=== PATIENT | female | born 1960 | race Caucasian/White ===

== ENCOUNTER → 2022-05-11 | Outpatient (CLI) | payer OTHER, SELFPAY ==
[2022-05-11 09:39] LABS: Bacteria 0 SEEN /hpf (None Seen); Mucous, Urine 0 SEEN /hpf (<or=2+); Red Blood Cells-Urine 0 SEEN /hpf (0-5); Squamous Epithelial Cells - UA 0 SEEN /hpf (5-10)
[2022-05-11 09:40] LABS: Color, Urine Yellow (Yellow); Glucose, Dipstick Normal (Normal); Ketone-Dipstick Negative (Negative); Leukocyte Esterase-Dipstick 25 /ul (Negative); Nitrite-Dipstick Negative (Negative); Occult Blood-Urine Negative /ul (Negative); Protein-Dipstick Negative (Negative); Specific Gravity, Urine 1.005 (1.002-1.030); Urine Bilirubin Dipstick Negative (Negative); Urine Clarity Clear (Clear); Urine Urobilinogen Normal (Normal)
[2022-05-11 09:41] LABS: Hematocrit 43.6 % (37-47); Hemoglobin 14.5 g/dL (12.0-15.0); Mean Corp Hgb Conc 33.3 g/dL (32-36); Mean Corpuscular Hgb 32.1 pg (27.0-32.0); Mean Corpuscular Volume 96.5 fL (81-99); Platelet Count 228 K/mm3 (150-450); RBC Distribution Width CV 12.1 % (11.6-14.6); RBC Distribution Width SD 42.8 fl (35.1-43.9); Red Blood Count 4.52 M/mm3 (4.2-5.4); White Blood Count 3.8 K/mm3 (4.4-11.0)
[2022-05-11 09:49] LABS: White Blood Cells 0-5 SEEN /hpf (0-5)
[2022-05-11 10:05] LABS: ALB/GLOB Ratio 1.1 RATIO (0.9-2.4); AST(SGOT) 24 U/L (15-37); Alanine Aminotransfer ALT/SGPT 38 U/L (13-56); Albumin, Serum 4.1 g/dL (3.2-5.0); Alkaline Phosphatase 78 U/L (45-117); Anion Gap 7 (5-15); BUN 10 mg/dL (7-18); BUN/Creat Ratio 10.3 RATIO (10-20); Chloride 101 mmol/L (98-107); Cholesterol 160 mg/dL (200); Creatinine, Serum 0.97 mg/dL (0.55-1.02); EST Glomerular Filtration Rate 62 mL/min (>60); Est Glom Filt Rate - Afr Amer 75 mL/min (>60); Globulin 3.6 g/dL (2.2-4.2); Glucose 93 mg/dL (74-106); High Density Lipoprotein 52 mg/dL; Protein, Total 7.7 g/dL (6.4-8.2); Sodium Level 137 mmol/L (136-145); Thyroid Stim Hormone (TSH) 0.08 uIU/mL (0.358-3.74); Triglycerides 187 mg/dL; Very Low Density Lipoprotein 37 mg/dL (5-40)
[2022-05-11 10:32] LABS: HIV - WCH Non-Reactive (Nonreactive); Hepatitis C Antibody Non-Reactive (Nonreactive); Vitamin D,25 Hydroxy 72.8 ng/mL
== END | disposition home or self-care (01) ==
LOC: PAVLAB 09:14
PROVIDERS: PCP Nurse Practitioner Family; Referring Provider Nurse Practitioner Family; Visit Provider Nurse Practitioner Family
DX: N18.2 Chronic kidney disease, stage 2 (mild) (principal); E78.2 Mixed hyperlipidemia; E03.9 Hypothyroidism, unspecified; Z11.4 Encounter for screening for human immunodeficiency virus [HIV]; Z11.59 Encounter for screening for other viral diseases
CPT/HCPCS: 36415; 80053; 80061; 81001; 82306; 84443; 85027; 86703; 86803

== ENCOUNTER → 2022-07-19 | Outpatient (CLI) | payer OTHER, SELFPAY ==
[2022-07-19 09:39] LABS: Thyroid Stim Hormone (TSH) 0.94 uIU/mL (0.358-3.74)
== END | disposition home or self-care (01) ==
LOC: PAVLAB 08:56
PROVIDERS: PCP Nurse Practitioner Family; Referring Provider Nurse Practitioner Family; Visit Provider Nurse Practitioner Family
DX: E03.9 Hypothyroidism, unspecified (principal)
CPT/HCPCS: 36415; 84443

== ENCOUNTER → 2022-11-18 | Outpatient (CLI) | payer OTHER, SELFPAY ==
[2022-11-18 10:24] LABS: Bacteria 0 SEEN /hpf (None Seen); Mucous, Urine 0 SEEN /hpf (<or=2+); Red Blood Cells-Urine 0 SEEN /hpf (0-5)
[2022-11-18 10:27] LABS: Hematocrit 42.8 % (37-47); Hemoglobin 14.1 g/dL (12.0-15.0); Mean Corp Hgb Conc 32.9 g/dL (32-36); Mean Corpuscular Hgb 32.7 pg (27.0-32.0); Mean Corpuscular Volume 99.3 fL (81-99); Mean Platelet Vol. 9.3 fl (6.2-12.0); Platelet Count 225 K/mm3 (150-450); RBC Distribution Width CV 12.2 % (11.6-14.6); RBC Distribution Width SD 44.8 fl (35.1-43.9); Red Blood Count 4.31 M/mm3 (4.2-5.4); White Blood Count 4.2 K/mm3 (4.4-11.0)
[2022-11-18 10:29] LABS: Color, Urine Yellow (Yellow); Glucose, Dipstick Normal (Normal); Ketone-Dipstick Negative (Negative); Leukocyte Esterase-Dipstick 25 /ul (Negative); Nitrite-Dipstick Negative (Negative); Occult Blood-Urine Negative /ul (Negative); Protein-Dipstick Negative (Negative); Specific Gravity, Urine 1.005 (1.002-1.030); Urine Bilirubin Dipstick Negative (Negative); Urine Clarity Sl. Cloudy (Clear); Urine Urobilinogen Normal (Normal)
[2022-11-18 10:36] LABS: Squamous Epithelial Cells - UA 0-5 SEEN /hpf (5-10); White Blood Cells 0-5 SEEN /hpf (0-5)
[2022-11-18 10:49] LABS: ALB/GLOB Ratio 1.1 RATIO (0.9-2.4); AST(SGOT) 24 U/L (15-37); Alanine Aminotransfer ALT/SGPT 33 U/L (13-56); Albumin, Serum 3.9 g/dL (3.2-5.0); Alkaline Phosphatase 80 U/L (45-117); Anion Gap 6 (5-15); BUN 9 mg/dL (7-18); BUN/Creat Ratio 8.8 RATIO (10-20); Calcium,Total 9.1 mg/dL (8.5-10.1); Chloride 102 mmol/L (98-107); Creatinine, Serum 1.02 mg/dL (0.55-1.02); EST Glomerular Filtration Rate 58 mL/min (>60); Est Glom Filt Rate - Afr Amer 70 mL/min (>60); Globulin 3.5 g/dL (2.2-4.2); Glucose 97 mg/dL (74-106); Potassium 4.2 mmol/L (3.5-5.1); Protein, Total 7.4 g/dL (6.4-8.2); Sodium Level 136 mmol/L (136-145); Thyroid Stim Hormone (TSH) 0.59 uIU/mL (0.358-3.74)
== END | disposition home or self-care (01) ==
LOC: PAVLAB 09:48
PROVIDERS: PCP Nurse Practitioner Family; Referring Provider Nurse Practitioner Family; Visit Provider Nurse Practitioner Family
DX: E03.8 Other specified hypothyroidism (principal); N18.30 Chronic kidney disease, stage 3 unspecified; E06.3 Autoimmune thyroiditis; I12.9 Hypertensive chronic kidney disease with stage 1 through stage 4 chronic kidney disease, or unspecified chronic kidney disease
CPT/HCPCS: 36415; 80053; 81001; 84443; 85027

== ENCOUNTER → 2023-05-17 | Outpatient (CLI) | payer OTHER, SELFPAY ==
[2023-05-17 10:07] LABS: Hematocrit 42.5 % (37-47); Mean Corp Hgb Conc 32.9 g/dL (32-36); Mean Platelet Vol. 9.1 fl (6.2-12.0); Platelet Count 229 K/mm3 (150-450); RBC Distribution Width CV 12.3 % (11.6-14.6); RBC Distribution Width SD 44.3 fl (35.1-43.9); Red Blood Count 4.38 M/mm3 (4.2-5.4); White Blood Count 3.7 K/mm3 (4.4-11.0)
[2023-05-17 10:43] LABS: Vitamin D,25 Hydroxy 77.6 ng/mL
[2023-05-17 10:51] LABS: ALB/GLOB Ratio 1.1 RATIO (0.9-2.4); AST(SGOT) 30 U/L (15-37); Alanine Aminotransfer ALT/SGPT 44 U/L (13-56); Albumin, Serum 3.9 g/dL (3.2-5.0); Alkaline Phosphatase 87 U/L (45-117); Anion Gap 1 (5-15); BUN 9 mg/dL (7-18); BUN/Creat Ratio 8.9 RATIO (10-20); Calcium,Total 8.9 mg/dL (8.5-10.1); Chloride 105 mmol/L (98-107); Cholesterol 166 mg/dL (200); Creatinine, Serum 1.01 mg/dL (0.55-1.02); EST Glomerular Filtration Rate 59 mL/min (>60); Est Glom Filt Rate - Afr Amer 71 mL/min (>60); Globulin 3.6 g/dL (2.2-4.2); Glucose 99 mg/dL (74-106); High Density Lipoprotein 48 mg/dL; Protein, Total 7.5 g/dL (6.4-8.2); Sodium Level 135 mmol/L (136-145); Thyroid Stim Hormone (TSH) 0.85 uIU/mL (0.358-3.74); Triglycerides 173 mg/dL; Very Low Density Lipoprotein 35 mg/dL (5-40)
--- OUTSIDE RECORDS SUMMARY | 2023-05-17 11:21 | XMS RPT_ITS | CCD ---
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 Tamara Slater Attending Kaitlyn Durant, Dr. Tamara Slater Primary Care TAMARA Hager Primary Care Unavailable TAMARA DURANT Attending Unavailable TAMARA DURANT Referring Unavailable TAMARA DURANT Primary Care Unavailable TAMARA DURANT Referring Unavailable TAMARA DURANT Primary Care Unavailable TAMARA DURANT Attending Unavailable TAMARA DURANT Referring Unavailable TAMARA DURANT Primary Care Unavailable TAMARA DURANT Attending Unavailable TAMARA DURANT Referring Unavailable LIA MOSQUEDA Attending Unavailable TAMARA DURANT Referring Unavailable TAMARA DURANT Primary Care Unavailable SEBASTIAN BENSON Attending Unavailable LIA MOSQUEDA Referring Unavailable TAMARA DURANT Primary Care Unavailable TAMARA DURANT Primary Care Unavailable SAYDA ARBOLEDA Referring Unavailable LIA MOSQUEDA Attending Unavailable Medications Current Medications Medication Drug Class(es) Dates Sig (Normalized) Sig (Original) Ascorbic Acid (1 source) Vitamin C Ascorbic Acid (VITAMIN C PO) Take by mouth 0 Active B Complex Vitamins (VITAMIN B COMPLEX PO) (1 source) B Complex Vitamins (VITAMIN B COMPLEX PO) Take by mouth 0 Active linseed oil 1000 mg oral capsule (1 source) take 1 capsule by mouth once daily Flaxseed, Linseed, (FLAX SEED OIL) 1000 MG CAPS Take 1,000 mg by mouth daily 0 Active Multiple Vitamins-Minerals (DAILY MULTI VITAMIN/MINERALS PO) (1 source) Multiple Vitamins-Minerals (DAILY MULTI VITAMIN/MINERALS PO) Take by mouth 0 Active nystatin [id number] unt/ml topical cream (8 sources) Polyene Antifungal Start: 05-20-2022 End: 06-19-2022 nystatin (MYCOSTATIN) cream Indications: Yeast dermatitis Apply to affected area twice daily. 30 g 2 05/20/2022 06/19/2022 Active Completed/Discontinued Medications Medication Drug Class(es) Dates Sig (Normalized) Sig (Original) cholecalciferol 0.125 mg oral tablet (19 sources) Vitamin D take 1 tablet by mouth once daily cholecalciferol (VITAMIN D3) 5,000 unit tab Take 5,000 Units by mouth once daily. 0 Active Problems Active Problems Problem Classification Problem Date Documented Date Episodic/Chronic Chronic kidney disease (20 sources) Chronic kidney disease stage 2; Translations: [Chronic kidney disease, stage 2 (mild)] Onset: 05-30-2019 Chronic Chronic kidney disease (1 source) Chronic kidney disease; Translations: [Stage 3 chronic kidney disease, unspecified whether stage 3a or 3b CKD (HCC)] Onset: 04-08-2022 Disorders of lipid metabolism (20 sources) Hyperlipidemia; Translations: [Mixed hyperlipidemia] Onset: 11-30-2015 11-30-2015 Chronic Essential hypertension (16 sources) Hypertensive disorder; Translations: [Essential (primary) hypertension] Onset: 11-30-2015 11-30-2015 Chronic Heart valve disorders (20 sources) Mitral valve prolapse; Translations: [Nonrheumatic mitral (valve) prolapse] Onset: 04-19-2022 Chronic Immunizations and screening for infectious disease (20 sources) Patient encounter status; Translations: [Encounter for screening for human immunodeficiency virus [HIV]] Onset: 07-15-2020 Episodic Other endocrine disorders (19 sources) Hyperparathyroidism; Translations: [Hyperparathyroidism, unspecified] Onset: 09-23-2021 04-08-2022 Chronic Other screening for suspected conditions (not mental disorders or infectious disease) (8 sources) Cancer cervix screening status; Translations: [Encounter for screening for malignant neoplasm of cervix] Onset: 05-20-2022 Episodic Thyroid disorders (20 sources) Hypothyroidism; Translations: [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] Onset: 11-30-2015 11-30-2015 Chronic Unclassified (1 source) 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 Onset: 06-01-2022 Past or Other Problems Problem Classification Problem Date Documented Da te Episodic/Chronic Cardiac dysrhythmias (4 sources) Tachycardia; Translations: [Tachycardia, unspecified] Onset: 05-26-2022 Episodic Mycoses (2 sources) Candidiasis of skin; Translations: [Candidiasis of skin and nail] Onset: 05-20-2022 Episodic Other and unspecified benign neoplasm (18 sources) History of polyp of colon; Translations: [Personal history of colonic polyps] Onset: 04-19-2022 04-19-2022 Episodic Results Test Name Value Interpretation Reference Range Facil ity Vital Signs Date Time Vital Sign Value Performing Clinician Corazon jack 01-17-2023 08:56-0400 Body height 170.2 cm Lia AWAN-Stephie Work Phone: [facility] 01-17-2023 08:56-0400 Body weight 84.37 kg Lia AWAN-C Work Phone: [facility] 01-17-2023 08:56-0400 Diastolic blood pressure 78 mm[Hg] Lia AWAN-C Work Phone: [facility] 01-17-2023 08:56-0400 Heart rate 77 /min Lia AWAN-C Work Phone: [facility] 01-17-2023 08:56-0400 Systolic blood pressure 129 mm[Hg] Lia Patriciar PA-C Work Phone: [facility] 11-18-2022 08:35-0400 Body height 170.2 cm Tamara Durant LABEL DESIGNER.MICROECONOMICS PROFESSOR Work Phone: [facility] 11-18-2022 08:35-0400 Body temperature 97 [degF] Tamara Trill LABEL DESIGNER.MICROECONOMICS PROFESSOR Work Phone: [facility] 11-18-2022 08:35-0400 Body weight 85.28 kg Tamara Trill LABEL DESIGNER.MICROECONOMICS PROFESSOR Work Phone: [facility] 11-18-2022 08:35-0400 Diastolic blood pressure 74 mm[Hg] Tamara Trill LABEL DESIGNER.MICROECONOMICS PROFESSOR Work Phone: [facility] 11-18-2022 08:35-0400 Heart rate 70 /min Tamara Trill LABEL DESIGNER.MICROECONOMICS PROFESSOR Work Phone: [facility] 11-18-2022 08:35-0400 SaO2% (BldA) [Mass fraction] 98 % Tamara Trill LABEL DESIGNER.MICROECONOMICS PROFESSOR Work Phone: [facility] 11-18-2022 08:35-0400 Systolic blood pressure 110 mm[Hg] Tamara Trill LABEL DESIGNER.MICROECONOMICS PROFESSOR Work Phone: [facility] 06-01-2022 09:11-0500 Body height 170.2 cm Tamara Trill LABEL DESIGNER.MICROECONOMICS PROFESSOR Work Phone: [facility] 06-01-2022 09:11-0500 Body temperature 98.2 [degF] Tamara Trill LABEL DESIGNER.MICROECONOMICS PROFESSOR Work Phone: [facility] 06-01-2022 09:11-0500 Body weight 84.37 kg Tamara Trill LABEL DESIGNER.MICROECONOMICS PROFESSOR Work Phone: [facility] 06-01-2022 09:11-0500 Diastolic blood pressure 70 mm[Hg] Tamara Trill LABEL DESIGNER.MICROECONOMICS PROFESSOR Work Phone: [facility] 06-01-2022 09:11-0500 Heart rate 84 /min Tamara Trill LABEL DESIGNER.MICROECONOMICS PROFESSOR Work Phone: [facility] 06-01-2022 09:11-0500 SaO2% (BldA) [Mass fraction] 98 % Tamara Trill LABEL DESIGNER.MICROECONOMICS PROFESSOR Work Phone: [facility] 06-01-2022 09:11-0500 Systolic blood pressure 110 mm[Hg] Tamara Trill LABEL DESIGNER.MICROECONOMICS PROFESSOR Work Phone: [facility] 05-20-2022 09:07-0500 Body height 170.2 cm Tamara Trill LABEL DESIGNER.MICROECONOMICS PROFESSOR Work Phone: [facility] 05-20-2022 09:07-0500 Body temperature 97.7 [degF] Tamara Trill LABEL DESIGNER.MICROECONOMICS PROFESSOR Work Phone: [facility] 05-20-2022 09:07-0500 Body weight 82.56 kg Tamara Trill LABEL DESIGNER.MICROECONOMICS PROFESSOR Work Phone: [facility] 05-20-2022 09:07-0500 Diastolic blood pressure 68 mm[Hg] Tamara Trill LABEL DESIGNER.MICROECONOMICS PROFESSOR Work Phone: [facility] 05-20-2022 09:07-0500 Heart rate 80 /min Tamara Trill LABEL DESIGNER.MICROECONOMICS PROFESSOR Work Phone: [facility] 05-20-2022 09:07-0500 SaO2% (BldA) [Mass fraction] 98 % Tamara Trill LABEL DESIGNER.MICROECONOMICS PROFESSOR Work Phone: [facility] 05-20-2022 09:07-0500 Systolic blood pressure 110 mm[Hg] Tamara Trill LABEL DESIGNER.MICROECONOMICS PROFESSOR Work Phone: [facility] 04-08-2022 08:18-0500 Body height 170.2 cm Tamara Trill LABEL DESIGNER.MICROECONOMICS PROFESSOR Work Phone: [facility] 04-08-2022 08:18-0500 Body temperature 98.01 [degF] Tamara Trill LABEL DESIGNER.MICROECONOMICS PROFESSOR Work Phone: [facility] 04-08-2022 08:18-0500 Body weight 84.82 kg Tamara Trill LABEL DESIGNER.MICROECONOMICS PROFESSOR Work Phone: [facility] 04-08-2022 08:18-0500 Diastolic blood pressure 64 mm[Hg] Tamara Trill LABEL DESIGNER.MICROECONOMICS PROFESSOR Work Phone: [facility] 04-08-2022 08:18-0500 Heart rate 85 /min Tamara Trill LABEL DESIGNER.MICROECONOMICS PROFESSOR Work Phone: [facility] 04-08-2022 08:18-0500 SaO2% (BldA) [Mass fraction] 100 % Tamara Trill LABEL DESIGNER.MICROECONOMICS PROFESSOR Work Phone: [facility] 04-08-2022 08:18-0500 Systolic blood pressure 116 mm[Hg] Tamara Durant APRN.MICROECONOMICS PROFESSOR Work Phone: [facility] Encounters Encounter Date Encounter Type Care Provider Facility Start: 05-09-2023 End: 05-09-2023 ambulatory LIA MOSQUEDA [facility] Start: 04-24-2023 [facility]ced[facility] Start: 04-24-[address] [facility] Start: 01-17-2023 Telephone encounter Lia wilson PA-C Work Phone: [facility] Procedures Date Procedure Procedure Detail Performing Clinician Start: 07-19-2022 TSH BLD [facility] Provid er Start: 06-01-2022 Mammography Mammograph y Coordinator Start: 05-20-2022 Iadna human papillom avirus high-risk types Tamara Durant APRN.MICROECONOMICS PROFESSOR Work Phone: Start: 05-20-2022 Unlisted surgical pa thology procedure Tamara Durant APRN.MICROECONOMICS PROFESSOR Work Phone: Start: 05-11-2022 CBC panel - Blood by Automated count [facility] Provider Start: 05-11-2022 Comprehensive metabo lic 2000 panel - Serum or Plasma [facility] Provider Start: 05-11-2022 Hepatitis c antibody [facility] f Provider Start: 05-11-2022 HIV [facility] Provid er Start: 05-11-2022 Lipid panel [facility] Provid er Start: 05-11-2022 UA DIP B/O [facility] Provid er Start: 05-11-2022 VITAMIN D 1-25 DIHYDROXY [facility] Provider Start: 05-11-2022 Lipid 1996 panel - S juancho or Plasma Lia Mosqueda PA-C Work Phone: Plan of Treatment Date Care Activity Detail Author Start: 10-07-2027 Colon cancer screen colonoscopy Colon cancer screen colonoscopy [place], [place] Start: 06-01-2027 HPV TESTING HPV TESTING [facility] Start: 06-01-2027 PAP TESTING PAP TESTING [facility] Start: 05-20-2027 HPV TESTING HPV TESTING [facility] Start: 05-20-2027 PAP TESTING PAP TESTING [facility] Start: 05-11-2027 Lipid 1996 panel - S juancho or Plasma Lipid Screening [facility] Start: 05-11-2027 LIPID SCREEN LIPID SCREEN [facility] Start: 05-11-2025 DIABET[facility] Start: 05-11-2025 Diabetes Screening Diabetes Screenin g [facility] Start: 11-19-2023 ANNUAL PCP TEAM OPHTHALMIC ASST WEI DISEASE VISIT ANNUAL PCP TEAM CHRONIC DISEASE VISIT [facility] Start: 06-01-2023 ANNUAL PCP TEAM OPHTHALMIC ASST WEI DISEASE VISIT ANNUAL PCP TEAM CHRONIC DISEASE VISIT [facility] Start: 06-01-2023 BP CONTROLLED (<130/80) BP CONTROLLE D (<130/80) [facility] Start: 06-01-2023 Mammography [facility] Start: 05-20-2023 ANNUAL PCP TEAM OPHTHALMIC ASST WEI DISEASE VISIT ANNUAL PCP TEAM CHRONIC DISEASE VISIT [facility] Start: 05-20-2023 BP CONTROLLED (<130/80) BP CONTROLLE D (<130/80) [facility] Start: 05-20-2023 COLORECTAL CANCER SCREENING COLORECTAL CANCER SCREENING [facility] Immunizations Immunization Date Immunization Notes Care Provider Fa claudia 05-07-2019 zoster vaccine recombinant Tamara Trill LABEL DESIGNER.MICROECONOMICS PROFESSOR Work Phone: [facility] Work Phone: 02-25-2019 zoster vaccine recombinant Tamara Trill LABEL DESIGNER.MICROECONOMICS PROFESSOR Work Phone: [facility] Work Phone: Payers Date Payer Category Payer Unknown [id number] 2021 Unknown [id number] 2016 Unknown [employer] ACCESS [employer] xxxxxxxxxxxx 2016-Present [address] [place] [address] xxxxxxxxxxxx [id number] 1960 Unknown [id number] Social History Date Type Detail Facility Start: 08-16-2017 End: 04-08-2022 Tobacco smoking status NHIS Never smoker [facility] Start: 08-16-2017 End: 11-18-2022 Alcohol intake No [facility] Start: 1960 Sex Assigned At Not on file [facility] [place] Start: 04-08-2022 Tobacco use and exposure Smoke less tobacco non-user [facility] Start: 04-19-2022 End: 01-17-2023 Alcohol intake Lifetime non-drinker (finding) [facility] Start: 11-18-2022 End: 11-21-2022 History of Social function [facility] Adult Depression Screening Assessment 0 [facility] Clinical Notes 11-30-2015 to 05-09-2023 Telephone Encounter - Lisette Mcdonald - 01/17/2023 11:26 AM EDTAddendum Note - Lisette Mcdonald - 01/17/2023 11:25 AM EDTAddendum Note - Lisette Mcdonald - 01/17/2023 10:54 AM EDT Note Date & Type Note Facility 05-09-2023 Note HNO ID: [id number] Author: LIA MOSQUEDA PA-C Service: ? Author Type: Physician [employer] Type: Progress Notes Filed: 05/09/2023 09:21 Note Text: GASTROENTEROLOGY PROGRESS NOTE OUTPATIENT FOLLOW UP HPI: I saw Eliana Nolan today for a follow up for a colonoscopy. The procedure went well. 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 removed atypical cell COLONOSCOPY SCREENING 04/24/2023 IRIDOTOMY/IRRIDECTOMY LASER SURG PER SESSION Bilateral 2018 Dr. White LIGLATANYA FALLOPIAN TUBE tubual ligation in 1996 Social History Tobacco Use Smoking status: Never Passive exposure: Past Smokeless tobacco: Never Substance Use Topics Alcohol use: Never Drug use: Never FAMILY HISTORY Problem Relation Age of Onset Diabetes Mother Heart disease Mother other (Twisted colon) Mother other (CHF) Mother other (TIA) Mother other (Neck Surgery) Mother other (CHF) Father other (Lead poisoning) Father Arthritis Sister Heart Sister Diabetes Brother Arthritis Brother Breast Cancer Paternal Aunt Current Outpatient Medications Medication Sig fluticasone (FLONASE) 50 mcg/actuation nasal spray instill 1 (ONE) spray IN EACH NOSTRIL TWICE DAILY for 1 (ONE) month. if no improvement, may discontinue DIRECTED (Patient not taking: Reported on 04/24/2023) lisinopril 2.5 mg tablet TAKE 1 TABLET BY MOUTH 1 TIME EACH DAY. pravastatin (PRAVACHOL) 40 mg tablet TAKE 1 TABLET BY MOUTH 1 TIME EACH DAY. levothyroxine (SYNTHROID) 125 mcg tablet TAKE 1 TABLET BY MOUTH 1 TIME EACH DAY. COQ10, UBIQUINOL, ORAL Take by mouth once daily. Multivitamin capsule Take 1 capsule by mouth once daily. Complete multivitamin woman vitamin B complex/folic acid (B COMPLEX 100 ORAL) Take by mouth. complex cholecalciferol (VITAMIN D3) 5,000 unit tab Take 5,000 Units by mouth once daily. Fluocinolone Acetonide Oil 0.01 % drop APPLY 1 3 DROPS BOTH EARS TWICE A DAY NEEDED Current Facility-Administered Medications Medication Dose Route Frequency perflutren lipid microspheres 1.3 mL in NaCl (PF) 0.9% 10 mL injection (DEFINITY) INTRAVENOUS DIRECTED PRN sodium chloride 0.9 % (flush) 10 mL (BD POSIFLUSH) 10 mL INTRAVENOUS DIRECTED PRN ALLERGIES No Known Allergies PHYSICAL EXAMINATION: BP 135/81 (BP Site: Left Arm, BP Position: Sitting, BP Cuff Size: Regular Adult) Pulse 84 Ht 170.2 cm (5' 7 ) Wt 86.2 kg (190 lb) BMI 29.76 kg/m? GENERAL APPEARANCE: Well appearing, alert, in no acute distress, well-hydrated, well nourished.. SKIN: Skin color, texture, turgor normal, no suspicious rashes or lesions. EYES: Anicteric sclera. Extraocular movements are intact. . NECK: Supple, no adenopathy; thyroid symmetric, normal size. EXTREMITIES: No deformities, edema, skin discoloration, clubbing or cyanosis. NEUROLOGIC: Gait normal. Sensation and strength grossly intact.. LABS: HCT Date Value 05/11/2022 43.6 05/11/2022 43.6 % WBC (no units) Date Value 05/11/2022 3.8 05/11/2022 0-5 05/11/2022 3.8 Lab Results Component Value Date TBILI 0.70 05/11/2022 ALB 4.1 05/11/2022 ALKPHOS 78 05/11/2022 AST 24 05/11/2022 ALT 38 05/11/2022 TPROT 7.7 05/11/2022 Colonoscopy 04/24/2023 Pre-Op/Pre-Procedure Diagnosis: Surveillance colonoscopy Post-Op/Post-Procedure Diagnosis: Sigmoid diverticulosis Normal examined colon and retroflexion Recommendations: DC home Resume previous diet Continue home medication Repeat colonoscopy in 7-10 years Plan ASSESSMENT AND PLAN: Impression: Eliana is a 62 y/o female who presents for a screening colonoscopy follow up. No polyps were removed. Based on her hx of polyps in the past I recommended repeating a c-scope in 7-10 yrs. Told pt to return to office sooner if she has any GI concerns. She understood and agreed. Pt had no further questions ASSESSMENT/PLAN: 1. Screening for colorectal cancer - ICD9: V76.51, V76.41, ICD10: Z12.11, Z12.12 -repeat c-scope in 7-10 yrs Lia Mosqueda PA-C I spent a total of 10 minutes on the date of the service which included preparing to see the patient, [id number] patient care, completing clinical documentation, counseling and educating the patient/family/caregiver, and communicating results to the patient/family/caregiver. [facility] 04-24-2023 Note HNO ID: [id number] Author: DEB ROQUE RN Service: Nursing Author Type: Registered Nurse Type: Nursing Progress Note Filed: 04/24/2023 15:47 Note Text: Pt dressed self. Pt D/c from PACU in stable condition via independent ambulation. [facility] 04-24-2023 Note HNO ID: [id number] Author: DEB ROQUE RN Service: Nursing Author Type: Registered Nurse Type: Nursing Progress Note Filed: 04/24/2023 15:09 Note Text: Dr. Benson in to see pt [facility] 04-24-2023 Note HNO ID: [id number] Author: FRANCY GOODRICH APRN.CNP Service: Anesthesiology Author Type: Nurse Practitioner Type: Progress Notes Filed: 04/24/2023 14:07 Note Text: Summary: HANDP PAT HISTORY AND PHYSICAL EXAMINATION SERVICE DATE: 04/24/2023 SERVICE TIME: 1347 PRIMARY CARE PHYSICIAN: Tamara Durant APRN.[facility] REASON FOR VISIT: The reason for this visit is To perform a comprehensive review of the patients past medical history, assess their current health status and obtain any additional testing required based on anesthesia guidelines. To assess and identify potential anesthesia problems, particularly those that may suggest potential complications or contraindications to the planned procedure. 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 Plan for colonoscopy. Denies bloody and tarry stools. Denies diarrhea and constipation. Denies family history of colon cancer. Denies abd pain. Weight is stable. Last colonoscopy was in 2018- 1 rectal polyp removed. Procedure discussed with Dr. Benson- patient agreed. -Known hemorrhoids Climb a flight of stairs or walk up a hill (5.50 METs) Patient denies any CP/SOB with above activity. 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 removed atypical cell IRIDOTOMY/IRRIDECTOMY LASER SURG PER SESSION Bilateral 2018 Dr. White LIGLATANYA FALLOPIAN TUBE tubual ligation in 1996 FAMILY HISTORY Problem Relation Age of Onset Diabetes Mother Heart disease Mother other (Twisted colon) Mother other (CHF) Mother other (TIA) Mother other (Neck Surgery) Mother other (CHF) Father other (Lead poisoning) Father Arthritis Sister Heart Sister Diabetes Brother Arthritis Brother Breast Cancer Paternal Aunt SOCIAL HISTORY: Social History Tobacco Use Smoking status: Never Smokeless tobacco: Never Substance Use Topics Alcohol use: Never Drug use: Never Prior to Admission medications as of 04/24/23 1347 Medication Sig Last Dose Taking lisinopril 2.5 mg tablet TAKE 1 TABLET BY MOUTH 1 TIME EACH DAY. 04/23/2023 at PM Yes pravastatin (PRAVACHOL) 40 mg tablet TAKE 1 TABLET BY MOUTH 1 TIME EACH DAY. Yes levothyroxine (SYNTHROID) 125 mcg tablet TAKE 1 TABLET BY MOUTH 1 TIME EACH DAY. Yes COQ10, UBIQUINOL, ORAL Take by mouth once daily. Yes Multivitamin capsule Take 1 capsule by mouth once daily. Complete multivitamin woman Yes vitamin B complex/folic acid (B COMPLEX 100 ORAL) Take by mouth. complex Yes cholecalciferol (VITAMIN D3) 5,000 unit tab Take 5,000 Units by mouth once daily. Yes Fluocinolone Acetonide Oil 0.01 % drop APPLY 1 3 DROPS BOTH EARS TWICE A DAY NEEDED Yes fluticasone (FLONASE) 50 mcg/actuation nasal spray instill 1 (ONE) spray IN EACH NOSTRIL TWICE DAILY for 1 (ONE) month. if no improvement, may discontinue DIRECTED Patient not taking: Reported on 04/24/2023 Not Taking No medication comments found. ALLERGIES No Known Allergies REVIEW OF SYSTEMS: PAIN ASSESSMENT: Pain Pain Level: 0 Pain Assessment: Assessment Tool: Verbal (Numeric Rating or Visual Analog Scale) General: (-) fever, chills, and unexpected weight change. Neuro: (-) dizziness and headaches. Respiratory: (-) SOB. Cardiovascular: (-) CP and palpitations. +MVP. HTN. +Hyperlipidemia. GI: See HPI. : (-) dysuria. +CKD Endocrine: (-) diabetes, +Hypothyroid - GREGORY elevated- per patient r/t thyroid Hematology: (-) history of bleeding or clotting disorder. Elevated GREGORY. Psych: (-) anxiety/depression. Musculoskeletal: (-) joint pain and swelling. Skin: (-) open sores and rashes. Objective PHYSICAL EXAM: VITALS: BP 129/66 Pulse 89 Temp (Src) 98.1 (Temporal) Resp 18 Ht 5' 7 (1.70m) Wt 186 lb (84.4kg) SpO2 100% BMI 29.12 kg/(m2). O2 Therapy: Room Air General: NAD. Cooperative. Skin: Skin is warm, no rashes, and no open sores. HEENT: Normocephalic. Cardiovascular: Normal S1 AND S2. RRR Lungs: CTA Bilaterally. No respiratory distress. Abdomen: Soft. Pos BS x4quad Extremities: No edema. Neurological: Alert and oriented to person, place, and time. Pulses: radial pulses +2 Diagnostic tests reviewed fo (more content not included)... [facility] 01-17-2023 Miscellaneous Notes Surgery Checklist Type: Colonoscopy Admission Type: outpatient Anesthesia: MAC Date: 04/24/23 Arrival Time: 8:30 AM Surgery Time: 9:30 AM Location: [place] Prep updated 1-Day Dulcolax/Miralax prep given to patient at appointment Lisette Mcdonald January 17, 2023 11:27 AM documented in this encounter [facility] 01-17-2023 Miscellaneous Notes Addended by: LISETTE MCDONALD on: 01/17/2023 11:25 AM Modules accepted: Orders Addended by: LISETTE MCDONALD on: 01/17/2023 10:54 AM Modules accepted: Orders documented in this encounter [facility] 01-17-2023 Note HNO ID: [id number] Author: Lia Mosqueda PA-C Service: ? Author Type: Physician [employer] Type: Progress Notes Filed: 01/17/2023 9:22 AM Note Text: GASTROENTEROLOGY OUTPATIENT NEW OFFICE VISIT CC: Patient presents with: New Patient: Colon screening HPI: Eliana Nolan is a 62 year old female who presents for New Patient (Colon screening/). She had a colonoscopy in 2018. It was done at another facility. 1 benign rectal polyp was removed. NSAID use: none. Unexplained weight loss: weight stable Take Blood thinners: none Bowel Habits: BM- every other day. If eats fiber then she has soft formed stool. If she has a low fiber diet she has hard stool Fam Hx: negative for colon CA Current Outpatient Medications Medication Sig lisinopril 2.5 mg tablet TAKE 1 TABLET BY MOUTH 1 TIME EACH DAY. pravastatin (PRAVACHOL) 40 mg tablet TAKE 1 TABLET BY MOUTH 1 TIME EACH DAY. levothyroxine (SYNTHROID) 125 mcg tablet TAKE 1 TABLET BY MOUTH 1 TIME EACH DAY. COQ10, UBIQUINOL, ORAL Take by mouth once daily. Multivitamin capsule Take 1 capsule by mouth once daily. Complete multivitamin woman vitamin B complex/folic acid (B COMPLEX 100 ORAL) Take by mouth. complex cholecalciferol (VITAMIN D3) 5,000 unit tab Take 5,000 Units by mouth once daily. Fluocinolone Acetonide Oil 0.01 % drop APPLY 1 3 DROPS BOTH EARS TWICE A DAY NEEDED fluticasone (FLONASE) 50 mcg/actuation nasal spray instill 1 (ONE) spray IN EACH NOSTRIL TWICE DAILY for 1 (ONE) month. 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 removed atypical cell IRIDOTOMY/IRRIDECTOMY LASER SURG PER SESSION Bilateral 2018 Dr. White LIGATE FALLOPIAN TUBE tubual ligation in 1996 FAMILY HISTORY Problem Relation Age of Onset Diabetes Mother Heart disease Mother other (Twisted colon) Mother other (CHF) Mother other (TIA) Mother other (Neck Surgery) Mother other (CHF) Father other (Lead poisoning) Father Arthritis Sister Heart Sister Diabetes Brother Arthritis Brother Breast Cancer Paternal Aunt Social History Tobacco Use Smoking status: Never Smokeless tobacco: Never Substance Use Topics Alcohol use: Never Drug use: Never ALLERGIES No Known Allergies GI SPECIFIC ROS: Difficulty swallowing / foods sticking in throat: No Heartburn: No Hoarseness: No Chronic cough: No Regurgitation: No Chest pain: No Filling up quickly at meals: No Loss of appetite: No Nausea: No Vomiting: No Abdominal pain: No Recent change in bowel movements: No Bloody or black, bowel movements: No Constipation: Yes w/ low fiber diet Diarrhea: No Loss of control of bowel movements: No Night sweats, fever, chills: No Vomiting blood: No Recent change in weight: No PHYSICAL EXAMINATION: BP 129/78 Pulse 77 Ht 170.2 cm (5' 7 ) Wt 84.4 kg (186 lb) BMI 29.13 kg/m? GENERAL APPEARANCE: Well appearing, alert, in no acute distress, well-hydrated, well nourished.. SKIN: Skin color, texture, turgor normal, no suspicious rashes or lesions. EYES: Anicteric sclera. Extraocular movements are intact. . NECK: Supple, no adenopathy; thyroid symmetric, normal size. LUNGS: Lungs clear to auscultation. No wheezing, rhonchi, rales. HEART: RRR without murmur, gallop, or rubs. No ectopy. EXTREMITIES: No deformities, edema, skin discoloration, clubbing or cyanosis. NEUROLOGIC: Gait normal. Sensation and strength grossly intact.. ASSESSMENT AND PLAN: Impression: This is a 62 y/o female who presents to the office today for a consult for a colonoscopy. Patient has no GI complaints. Patient's last colonoscopy was 5 yrs ago. It was normal. This patient is not on blood thinners. We discussed the procedure, instructions, and patient agrees to proceed. The patient verbalized understanding and agreed with the plan. They stated that they had no further questions. F/u 2 weeks after c-scope ASSESSMENT/PLAN: 1. Screening for colorectal cancer - ICD9: V76.51, V76.41, ICD10: Z12.11, Z12.12 - COLONOSCOPY SCREENING Lia Mosqueda PA-C I spent a total of 15 minutes on the date of the service which included [id number] patient care, completing clinical documentation, performing a medically appropriate examination, counseling and educating the patient/family/caregiver, and ordering medications, tests, or pro (more content not included)... [facility] 01-17-2023 History of Present illness Narrative GASTROENTEROLOGY OUTPATIENT NEW OFFICE VISIT CC: Patient presents with: New Patient: Colon screening HPI: Eliana Nolan is a 62 year old female who presents for New Patient (Colon screening/). She had a colonoscopy in 2018. It was done at another facility. 1 benign rectal polyp was removed. NSAID use: none. Unexplained weight loss: weight stable Take Blood thinners: none Bowel Habits: BM- every other day. If eats fiber then she has soft formed stool. If she has a low fiber diet she has hard stool Fam Hx: negative for colon CA Current Outpatient Medications Medication Sig lisinopril 2.5 mg tablet TAKE 1 TABLET BY MOUTH 1 TIME EACH DAY. pravastatin (PRAVACHOL) 40 mg tablet TAKE 1 TABLET BY MOUTH 1 TIME EACH DAY. levothyroxine (SYNTHROID) 125 mcg tablet TAKE 1 TABLET BY MOUTH 1 TIME EACH DAY. COQ10, UBIQUINOL, ORAL Take by mouth once daily. Multivitamin capsule Take 1 capsule by mouth once daily. Complete multivitamin woman vitamin B complex/folic acid (B COMPLEX 100 ORAL) Take by mouth. complex cholecalciferol (VITAMIN D3) 5,000 unit tab Take 5,000 Units by mouth once daily. Fluocinolone Acetonide Oil 0.01 % drop APPLY 1 3 DROPS BOTH EARS TWICE A DAY NEEDED fluticasone (FLONASE) 50 mcg/actuation nasal spray instill 1 (ONE) spray IN EACH NOSTRIL TWICE DAILY for 1 (ONE) month. 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 removed atypical cell IRIDOTOMY/IRRIDECTOMY LASER SURG PER SESSION Bilateral 2018 Dr. White LIGLATANYA FALLOPIAN TUBE tubual ligation in 1996 FAMILY HISTORY Problem Relation Age of Onset Diabetes Mother Heart disease Mother other (Twisted colon) Mother other (CHF) Mother other (TIA) Mother other (Neck Surgery) Mother other (CHF) Father other (Lead poisoning) Father Arthritis Sister Heart Sister Diabetes Brother Arthritis Brother Breast Cancer Paternal Aunt Social History Tobacco Use Smoking status: Never Smokeless tobacco: Never Substance Use Topics Alcohol use: Never Drug use: Never ALLERGIES No Known Allergies GI SPECIFIC ROS: Difficulty swallowing / foods sticking in throat: No Heartburn: No Hoarseness: No Chronic cough: No Regurgitation: No Chest pain: No Filling up quickly at meals: No Loss of appetite: No Nausea: No Vomiting: No Abdominal pain: No Recent change in bowel movements: No Bloody or black, bowel movements: No Constipation: Yes w/ low fiber diet Diarrhea: No Loss of control of bowel movements: No Night sweats, fever, chills: No Vomiting blood: No Recent change in weight: No PHYSICAL EXAMINATION: BP 129/78 Pulse 77 Ht 170.2 cm (5' 7 ) Wt 84.4 kg (186 lb) BMI 29.13 kg/m GENERAL APPEARANCE: Well appearing, alert, in no acute distress, well-hydrated, well nourished.. SKIN: Skin color, texture, turgor normal, no suspicious rashes or lesions. EYES: Anicteric sclera. Extraocular movements are intact. . NECK: Supple, no adenopathy; thyroid symmetric, normal size. LUNGS: Lungs clear to auscultation. No wheezing, rhonchi, rales. HEART: RRR without murmur, gallop, or rubs. No ectopy. EXTREMITIES: No deformities, edema, skin discoloration, clubbing or cyanosis. NEUROLOGIC: Gait normal. Sensation and strength grossly intact.. ASSESSMENT AND PLAN: Impression: This is a 62 y/o female who presents to the office today for a consult for a colonoscopy. Patient has no GI complaints. Patient's last colonoscopy was 5 yrs ago. It was normal. This patient is not on blood thinners. We discussed the procedure, instructions, and patient agrees to proceed. The patient verbalized understanding and agreed with the plan. They stated that they had no further questions. F/u 2 weeks after c-scope ASSESSMENT/PLAN: 1. Screening for colorectal cancer - ICD9: V76.51, V76.41, ICD10: Z12.11, Z12.12 - COLONOSCOPY SCREENING Lia Mosqueda PA-C I spent a total of 15 minutes on the date of the service which included [id number] patient care, completing clinical documentation, performing a medically appropriate examination, counseling and educating the patient/family/caregiver, and ordering medications, tests, or procedures. documented in this encounter [facility] 11-22-2022 Miscellaneous Notes Patient notified and voiced understanding . Lisa Juan MA CBC shows stable low WBC BUN 9/Creat 1.02 - normal GFR 58, slightly decreased - stable chronic kidney disease stage 2 UA - negative for protein, positive leukocyte esterase which is okay because all other values are normal Liver function normal TSH is 0.59 - normal Tamara Durant APRN.CNP Received fax from [facility] with patients blood work and urine results. Placed in red folder to review. Lisa Juan MA documented in this encounter [facility] 11-18-2022 Note HNO ID: [id number] Author: Tamara Durant APRN.CNP Service: ? Author Type: Nurse Practitioner Type: Progress Notes Filed: 11/21/2022 11:15 PM Note Text: This note was created using [email or web address]. Subjective Eliana Nolan is a 62 year old female here today for follow up thyroid. I reviewed past medical, surgical, social, and family histories today and updated chart. Allergies, chronic medications, and supplements were also reviewed. Feeling well today. Denies chest pains, palpitations, headache, dizziness, leg swelling, and vision changes. She has been clearing her throat a lot. Started about 2 months. No drainage. No pain. No changes in her voice A couple of days felt like she was was losing her voice No itching in the throat Ears itch due to dry skin in the ear canals, uses ear drop Has been on lisinopril for about 2 years now - was started for proteinuria Diet - pretty healthy, whole food plant based, hasn't been very strict Caffeine - coffee about every other day Exercise - not as much as she should be Tobacco use - none Alcohol use - none Medication compliance - she never forgets She is still taking her levothyroxine all days of the week except for Sundays She is due for a colonoscopy [facility] is covered under her insurance plan PAST MEDICAL HISTORY Diagnosis Date Chronic kidney disease History of colonic polyps History of narrow angle glaucoma Hypothyroidism 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 removed atypical cell IRIDOTOMY/IRRIDECTOMY LASER SURG PER SESSION Bilateral 2018 Dr. White LIGATE FALLOPIAN TUBE tubual ligation in 1996 ALLERGIES Patient has no known allergies. MEDICATIONS fluticasone (FLONASE) 50 mcg/actuation nasal sprayinstill 1 (ONE) spray IN EACH NOSTRIL TWICE DAILY for 1 (ONE) month. if no improvement, may discontinue DIRECTEDDisp: Rfl: lisinopril 2.5 mg tabletTAKE 1 TABLET BY MOUTH 1 TIME EACH DAY.Disp: 90 tabletRfl: 3 pravastatin (PRAVACHOL) 40 mg tabletTAKE 1 TABLET BY MOUTH 1 TIME EACH DAY.Disp: 90 tabletRfl: 3 levothyroxine (SYNTHROID) 125 mcg tabletTAKE 1 TABLET BY MOUTH 1 TIME EACH DAY.Disp: 90 tabletRfl: 3 COQ10, UBIQUINOL, ORALTake by mouth once daily.Disp: Rfl: Multivitamin capsuleTake 1 capsule by mouth once daily. Complete multivitamin womanDisp: Rfl: vitamin B complex/folic acid (B COMPLEX 100 ORAL)Take by mouth. complexDisp: Rfl: cholecalciferol (VITAMIN D3) 5,000 unit tabTake 5,000 Units by mouth once daily.Disp: Rfl: Fluocinolone Acetonide Oil 0.01 % dropAPPLY 1 3 DROPS BOTH EARS TWICE A DAY NEEDEDDisp: Rfl: FAMILY HISTORY Problem Relation Age of Onset Diabetes Mother Heart disease Mother other (Twisted colon) Mother other (CHF) Mother other (TIA) Mother other (Neck Surgery) Mother other (CHF) Father other (Lead poisoning) Father Arthritis Sister Heart Sister Diabetes Brother Arthritis Brother Breast Cancer Paternal Aunt Social History Tobacco Use Smoking status: Never Smokeless tobacco: Never Substance Use Topics Alcohol use: Never Drug use: Never Review of Systems Constitutional: Negative for appetite change, chills, fatigue, fever and unexpected weight change. HENT: Negative for congestion, ear pain, rhinorrhea and sore throat. Eyes: Negative for pain, discharge, itching and visual disturbance. Respiratory: Negative for cough, shortness of breath and wheezing. Cardiovascular: Negative for chest pain, palpitations and leg swelling. Occasional swelling top of left foot - relates to tendonitis Gastrointestinal: Negative for abdominal pain, constipation, diarrhea, nausea and vomiting. Genitourinary: Negative for difficulty urinating. Musculoskeletal: Negative for arthralgias. Skin: Negative for rash. Neurological: Negative for dizziness, tremors, weakness and headaches. Psychiatric/Behavioral: Negative for dysphoric mood and sleep disturbance. The patient is not nervous/anxious. Objective BP 110/74 Pulse 70 Temp 36.1 ?C (97 ?F) Ht 170.2 cm (5' 7 ) Wt 85.3 kg (188 lb) SpO2 98% BMI 29.44 kg/m? Physical Exam Constitutional: Appearance: Normal appearance. She is well-developed. She is not diaphoretic. HENT: Head: Normocephalic and atraumatic. Right Ear: Hearing, tympanic membrane, ear canal and external ear normal. Left Ear: Hearing, tympanic membrane, ear canal and external ear normal. Nose: Nose normal. Mouth/Throat: Lips: [place]. Mouth: Mucous membranes are moist. Pharynx: Oropharynx is clear. Eyes: General: Lids are normal. Conjunctiva/sclera: Conjunctivae normal. Pupils: Pupils are equal, round, and reactive to light. Neck: Vascular: Normal carotid pulses. No carotid bruit or JVD. Cardiovascular: Rate and Rhythm: Normal ra (more content not included)... [facility] 11-18-2022 History of Present illness Narrative This note was created using NoteWriter. Subjective Eliana Nolan is a 62 year old female here today for follow up thyroid. I reviewed past medical, surgical, social, and family histories today and updated chart. Allergies, chronic medications, and supplements were also reviewed. Feeling well today. Denies chest pains, palpitations, headache, dizziness, leg swelling, and vision changes. She has been clearing her throat a lot. Started about 2 months. No drainage. No pain. No changes in her voice A couple of days felt like she was was losing her voice No itching in the throat Ears itch due to dry skin in the ear canals, uses ear drop Has been on lisinopril for about 2 years now - was started for proteinuria Diet - pretty healthy, whole food plant based, hasn't been very strict Caffeine - coffee about every other day Exercise - not as much as she should be Tobacco use - none Alcohol use - none Medication compliance - she never forgets She is still taking her levothyroxine all days of the week except for Sundays She is due for a colonoscopy [facility] is covered under her insurance plan PAST MEDICAL HISTORY Diagnosis Date Chronic kidney disease History of colonic polyps History of narrow angle glaucoma Hypothyroidism 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 removed atypical cell IRIDOTOMY/IRRIDECTOMY LASER SURG PER SESSION Bilateral 2018 Dr. White LIGATE FALLOPIAN TUBE tubual ligation in 1996 ALLERGIES Patient has no known allergies. MEDICATIONS fluticasone (FLONASE) 50 mcg/actuation nasal spray^instill 1 (ONE) spray IN EACH NOSTRIL TWICE DAILY for 1 (ONE) month. if no improvement, may discontinue DIRECTED^Disp: ^Rfl: lisinopril 2.5 mg tablet^TAKE 1 TABLET BY MOUTH 1 TIME EACH DAY.^Disp: 90 tablet^Rfl: 3 pravastatin (PRAVACHOL) 40 mg tablet^TAKE 1 TABLET BY MOUTH 1 TIME EACH DAY.^Disp: 90 tablet^Rfl: 3 levothyroxine (SYNTHROID) 125 mcg tablet^TAKE 1 TABLET BY MOUTH 1 TIME EACH DAY.^Disp: 90 tablet^Rfl: 3 COQ10, UBIQUINOL, ORAL^Take by mouth once daily.^Disp: ^Rfl: Multivitamin capsule^Take 1 capsule by mouth once daily. Complete multivitamin woman^Disp: ^Rfl: vitamin B complex/folic acid (B COMPLEX 100 ORAL)^Take by mouth. complex^Disp: ^Rfl: cholecalciferol (VITAMIN D3) 5,000 unit tab^Take 5,000 Units by mouth once daily.^Disp: ^Rfl: Fluocinolone Acetonide Oil 0.01 % drop^APPLY 1 3 DROPS BOTH EARS TWICE A DAY NEEDED^Disp: ^Rfl: FAMILY HISTORY Problem Relation Age of Onset Diabetes Mother Heart disease Mother other (Twisted colon) Mother other (CHF) Mother other (TIA) Mother other (Neck Surgery) Mother other (CHF) Father other (Lead poisoning) Father Arthritis Sister Heart Sister Diabetes Brother Arthritis Brother Breast Cancer Paternal Aunt Social History Tobacco Use Smoking status: Never Smokeless tobacco: Never Substance Use Topics Alcohol use: Never Drug use: Never Review of Systems Constitutional: Negative for appetite change, chills, fatigue, fever and unexpected weight change. HENT: Negative for congestion, ear pain, rhinorrhea and sore throat. Eyes: Negative for pain, discharge, itching and visual disturbance. Respiratory: Negative for cough, shortness of breath and wheezing. Cardiovascular: Negative for chest pain, palpitations and leg swelling. Occasional swelling top of left foot - relates to tendonitis Gastrointestinal: Negative for abdominal pain, constipation, diarrhea, nausea and vomiting. Genitourinary: Negative for difficulty urinating. Musculoskeletal: Negative for arthralgias. Skin: Negative for rash. Neurological: Negative for dizziness, tremors, weakness and headaches. Psychiatric/Behavioral: Negative for dysphoric mood and sleep disturbance. The patient is not nervous/anxious. Objective BP 110/74 Pulse 70 Temp 36.1 C (97 F) Ht 170.2 cm (5' 7 ) Wt 85.3 kg (188 lb) SpO2 98% BMI 29.44 kg/m Physical Exam Constitutional: Appearance: Normal appearance. She is well-developed. She is not diaphoretic. HENT: Head: Normocephalic and atraumatic. Right Ear: Hearing, tympanic membrane, ear canal and external ear normal. Left Ear: Hearing, tympanic membrane, ear canal and external ear normal. Nose: Nose normal. Mouth/Throat: Lips: [place]. Mouth: Mucous membranes are moist. Pharynx: Oropharynx is clear. Eyes: General: Lids are normal. Conjunctiva/sclera: Conjunctivae normal. Pupils: Pupils are equal, round, and reactive to light. Neck: Vascular: Normal carotid pulses. No carotid bruit or JVD. Cardiovascular: Rate and Rhythm: Normal rate and regular rhythm. Pulses: Carotid pulses are 2+ on the right side and 2+ on the left side. Radial pulses are 2+ on the right side and 2+ on the left side. Dorsalis pedis pulses are 2+ on the right side and 2+ on the left side. Heart sounds: Normal heart sounds. No murmur heard. Pulmonary: Effort: Pulmonary effort is normal. Breath sounds: Normal breath sounds. No wheezing, rhonchi or rales. Abdominal: General: Bowel sounds are normal. Palpations: Abdomen is soft. Tenderness: There is no abdominal tenderness. Musculoskeletal: General: Normal range of motion. Cervical back: Normal range of motion and neck supple. Right lower leg: No edema. Left lower leg: No edema. Lymphadenopathy: Cervical: No cervical adenopathy. Skin: General: Skin is warm and dry. Findings: No rash. Neurological: General: No focal deficit present. Mental Status: She is alert and oriented to person, place, and time. Cranial Nerves: No cranial nerve deficit. Sensory: Sensation is intact. Motor: Motor function is intact. Coordination: Coordination is intact. Gait: Gait is intact. Psychiatric: Attention and Perception: Attention and perception normal. Mood and Affect: Mood and affect normal. Speech: Speech normal. Behavior: Behavior normal. Behavior is cooperative. Thought Content: Thought content normal. Judgment: Judgment normal. ASSESSMENT/PLAN: 1. 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 - continue current dose of Synthroid 0.125 mg - Follow up in 6 months - CBC - TSH BLD - COMP METABOLIC PANEL 2. Hyperlipidemia, unspecified hyperlipidemia type - ICD9: 272.4, ICD10: E78.5 - Controlled - Continue current medications - Counseled on healthy diet and regular exercise 3. Stage 3 chronic kidney disease, unspecified whether stage 3a or 3b CKD (HCC) - ICD9: 585.3, ICD10: N18.30 - eGFR: 75 Stable - Albuminuria: due for urine ACR - Counseled on avoiding NSAIDs, adequate hydration - ACEi/ARB prescribed: lisinopril - CBC - COMP METABOLIC PANEL - URINALYSIS, WITH MICROSCOPIC 4. Colon cancer screening - ICD9: V76.51, ICD10: Z12.11 Referral placed for colonoscopy - CONSULT TO GASTROENTEROLOGY Tamara Durant APRN.CNP documented in this encounter [facility] 07-19-2022 Miscellaneous Notes Patient notified. Lisa Juan MA ----- Message from Tamara Durant APRN.CNP sent at 07/19/2022 3:42 PM EDT ----- Normal TSH, continue levothyroxine 125 mcg daily. Tamara Durant APRN.CNP documented in this encounter [facility] 07-19-2022 Miscellaneous Notes Received fax from [facility]. TSH was 0.94 placed in blue folder to review. Lisa Juan MA documented in this encounter [facility] 07-11-2022 Miscellaneous Notes Patient aware . Lisa Juan MA Thank you. Please see orders. Tamara Durant APRN.CNP ----- Message from Sana Pelaez MA sent at 05/16/2022 2:30 PM EST ----- Patient due for 8 week recheck TSH after level was low and Tamara had patient continue levothyroxine 125 mcg Monday - Monday and none on Sundays. Sana Pelaez MA documented in this encounter [facility] 06-02-2022 Miscellaneous Notes [address] [address] June 02, 2022 PID: [id number] Eliana Nolan [address] [place] [address] Dear Andi Nolan, Your breast imaging exam 06/01/2022 showed a possible finding that may require additional imaging studies for a complete evaluation. However, we recognize you have prior imaging studies at facilities other than [facility], and would like the opportunity to compare your recent imaging with those studies to evaluate for any change. At this time, we have requested your prior studies. If/when your prior studies arrive, a final report will be sent to your healthcare provider and/or you. In addition, you will receive a new result letter and or phone call If you need additional imaging. If we do not receive prior studies within 30 days of your exam, you will receive a reminder letter and or phone call to schedule your diagnostic imaging. Your imaging studies and reports are kept on file at [facility] as part of your permanent medical record, and are available for your continuing care. If you have any questions or concerns, please call [phone]. Thank you for choosing [facility] for your imaging needs. Sincerely, Dr. Rausch Interpreting Radiologist [facility] documented in this encounter [facility] 06-01-2022 Miscellaneous Notes All information given to patients natacha. (On hippa). Lisa Juan MA Please let patient know I called about her ECHO being denied. I did a peer to peer and they will not cover an echo unless she has a murmur on exam or her EKG is showing abnormal rhythm. Tell her I am so sorry, I tried. Her echo is normal besides mild diastolic dysfunction, not a concerning finding. Tamara Durant APRN.DELMY documented in this encounter [facility] 06-01-2022 Note HNO ID: [id number] Author: RT Keyana(R) Service: Radiology Author Type: Technologist Type: Progress Notes Filed: 06/01/2022 11:06 AM Note Text: Radiology Service Progress Note PATIENT NAME: Eliana Nolan DATE OF SERVICE: June 01, 2022 TIME: 11:06 AM PATIENT IDENTITY VERIFICATION COMPLETED USING TWO (2) IDENTIFIERS: Name and Date of confirmed by patient verbally. FALL SCREENING: Has the patient had 2 falls in the last year or 1 fall with injury or currently using an Ambulatory Assistive Device (Walker, Cane, Wheelchair, Crutches, etc.)? No PATIENT GENDER DATA: Female. status: : No status: N/A PATIENT RELEVANT IMPLANT DATA REVIEWED: Not Applicable RADIOLOGY DEPARTMENT: Mammography PERIPHERAL IV DATA: Not applicable SIGNED BY: RT Keyana(R) June 01, 2022 11:06 AM [facility] 06-01-2022 Note HNO ID: [id number] Author: Tamara Durant APRN.DELMY Service: ? Author Type: Nurse Practitioner Type: Progress Notes Filed: 06/01/2022 9:40 AM Note Text: This note was created using [email or web address]. Subjective Eliana Nolan is a 61 year old female here today for repeat Pap smear. I reviewed past medical, surgical, social, and family histories today and updated chart. Allergies, chronic medications, and supplements were also reviewed. Patient was seen for her well adult visit on 05/20/22 and her Pap smear was completed. Unfortunately her specimen was unsatisfactory for evaluation and interpretation was unable to be performed. 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 removed atypical cell IRIDOTOMY/IRRIDECTOMY LASER SURG PER SESSION Bilateral 2018 Dr. White LIGATE FALLOPIAN TUBE tubual ligation in 1996 ALLERGIES Patient has no known allergies. MEDICATIONS fluticasone (FLONASE) 50 mcg/actuation nasal sprayinstill 1 (ONE) spray IN EACH NOSTRIL TWICE DAILY for 1 (ONE) month. if no improvement, may discontinue DIRECTEDDisp: Rfl: lisinopril 2.5 mg tabletTAKE 1 TABLET BY MOUTH 1 TIME EACH DAY.Disp: 90 tabletRfl: 3 pravastatin (PRAVACHOL) 40 mg tabletTAKE 1 TABLET BY MOUTH 1 TIME EACH DAY.Disp: 90 tabletRfl: 3 levothyroxine (SYNTHROID) 125 mcg tabletTAKE 1 TABLET BY MOUTH 1 TIME EACH DAY.Disp: 90 tabletRfl: 3 nystatin (MYCOSTATIN) creamApply to affected area twice daily.Disp: 30 gRfl: 2 COQ10, UBIQUINOL, ORALTake by mouth once daily.Disp: Rfl: Multivitamin capsuleTake 1 capsule by mouth once daily. Complete multivitamin womanDisp: Rfl: vitamin B complex/folic acid (B COMPLEX 100 ORAL)Take by mouth. complexDisp: Rfl: cholecalciferol (VITAMIN D3) 5,000 unit tabTake 5,000 Units by mouth once daily.Disp: Rfl: Fluocinolone Acetonide Oil 0.01 % dropAPPLY 1 3 DROPS BOTH EARS TWICE A DAY NEEDEDDisp: Rfl: FAMILY HISTORY Problem Relation Age of Onset Diabetes Mother Heart disease Mother other (Twisted colon) Mother other (CHF) Mother other (TIA) Mother other (Neck Surgery) Mother other (CHF) Father other (Lead poisoning) Father Arthritis Sister Heart Sister Diabetes Brother Arthritis Brother Breast Cancer Paternal Aunt Social History Tobacco Use Smoking status: Never Smokeless tobacco: Never Substance Use Topics Alcohol use: Never Drug use: Never Review of Systems Objective BP 110/70 Pulse 84 Temp 36.8 ?C (98.2 ?F) Ht 170.2 cm (5' 7 ) Wt 84.4 kg (186 lb) SpO2 98% BMI 29.13 kg/m? Physical Exam Exam conducted with a data analytics analyst present. Genitourinary: Labia: Right: No lesion. Left: No lesion. Urethra: No prolapse or urethral swelling. Vagina: Vaginal discharge (white) present. Cervix: Erythema (mild) present. No discharge. Comments: Mild erythema to bilateral vulva ASSESSMENT/PLAN: 1. Unsatisfactory cervical Papanicolaou smear - ICD9: 795.08, ICD10: R87.615 Repeat Pap smear completed today HPV test done on 05/20 = Negative Tamara Durant APRN.[facility] 06-01-2022 History of Present illness Narrative Radiology Service Progress Note PATIENT NAME: Eliana Nolan DATE OF SERVICE: June 01, 2022 TIME: 11:06 AM PATIENT IDENTITY VERIFICATION COMPLETED USING TWO (2) IDENTIFIERS: Name and Date of confirmed by patient verbally. FALL SCREENING: Has the patient had 2 falls in the last year or 1 fall with injury or currently using an Ambulatory Assistive Device (Walker, Cane, Wheelchair, Crutches, etc.)? No PATIENT GENDER DATA: Female. status: : No status: N/A PATIENT RELEVANT IMPLANT DATA REVIEWED: Not Applicable RADIOLOGY DEPARTMENT: Mammography PERIPHERAL IV DATA: Not applicable SIGNED BY: RT Keyana(R) June 01, 2022 11:06 AM documented in this encounter [facility] 06-01-2022 History of Present illness Narrative This note was created using [email or web address]. Subjective Eliana Nolan is a 61 year old female here today for repeat Pap smear. I reviewed past medical, surgical, social, and family histories today and updated chart. Allergies, chronic medications, and supplements were also reviewed. Patient was seen for her well adult visit on 05/20/22 and her Pap smear was completed. Unfortunately her specimen was unsatisfactory for evaluation and interpretation was unable to be performed. 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 removed atypical cell IRIDOTOMY/IRRIDECTOMY LASER SURG PER SESSION Bilateral 2018 Dr. White LIGLATANYA FALLOPIAN TUBE tubual ligation in 1996 ALLERGIES Patient has no known allergies. MEDICATIONS fluticasone (FLONASE) 50 mcg/actuation nasal spray^instill 1 (ONE) spray IN EACH NOSTRIL TWICE DAILY for 1 (ONE) month. if no improvement, may discontinue DIRECTED^Disp: ^Rfl: lisinopril 2.5 mg tablet^TAKE 1 TABLET BY MOUTH 1 TIME EACH DAY.^Disp: 90 tablet^Rfl: 3 pravastatin (PRAVACHOL) 40 mg tablet^TAKE 1 TABLET BY MOUTH 1 TIME EACH DAY.^Disp: 90 tablet^Rfl: 3 levothyroxine (SYNTHROID) 125 mcg tablet^TAKE 1 TABLET BY MOUTH 1 TIME EACH DAY.^Disp: 90 tablet^Rfl: 3 nystatin (MYCOSTATIN) cream^Apply to affected area twice daily.^Disp: 30 g^Rfl: 2 COQ10, UBIQUINOL, ORAL^Take by mouth once daily.^Disp: ^Rfl: Multivitamin capsule^Take 1 capsule by mouth once daily. Complete multivitamin woman^Disp: ^Rfl: vitamin B complex/folic acid (B COMPLEX 100 ORAL)^Take by mouth. complex^Disp: ^Rfl: cholecalciferol (VITAMIN D3) 5,000 unit tab^Take 5,000 Units by mouth once daily.^Disp: ^Rfl: Fluocinolone Acetonide Oil 0.01 % drop^APPLY 1 3 DROPS BOTH EARS TWICE A DAY NEEDED^Disp: ^Rfl: FAMILY HISTORY Problem Relation Age of Onset Diabetes Mother Heart disease Mother other (Twisted colon) Mother other (CHF) Mother other (TIA) Mother other (Neck Surgery) Mother other (CHF) Father other (Lead poisoning) Father Arthritis Sister Heart Sister Diabetes Brother Arthritis Brother Breast Cancer Paternal Aunt Social History Tobacco Use Smoking status: Never Smokeless tobacco: Never Substance Use Topics Alcohol use: Never Drug use: Never Review of Systems Objective BP 110/70 Pulse 84 Temp 36.8 C (98.2 F) Ht 170.2 cm (5' 7 ) Wt 84.4 kg (186 lb) SpO2 98% BMI 29.13 kg/m Physical Exam Exam conducted with a data analytics analyst present. Genitourinary: Labia: Right: No lesion. Left: No lesion. Urethra: No prolapse or urethral swelling. Vagina: Vaginal discharge (white) present. Cervix: Erythema (mild) present. No discharge. Comments: Mild erythema to bilateral vulva ASSESSMENT/PLAN: 1. Unsatisfactory cervical Papanicolaou smear - ICD9: 795.08, ICD10: R87.615 Repeat Pap smear completed today HPV test done on 05/20 = Negative Tamara Durant APRN.DELMY documented in this encounter [facility] 05-25-2022 Miscellaneous Notes Patient notified and voiced understanding. Lisa Juan MA ----- Message from Tamara Durant APRN.MICROECONOMICS PROFESSOR sent at 05/25/2022 12:42 PM EST ----- Pap needs to be repeated due to poor specimen, at her convenience, definitely within 1 year. HPV was negative. Tamara Durant APRN.CNP documented in this encounter [facility] 05-24-2022 Note A - CERVICAL SCREENI NG FLUID Unsatisfactory for evaluation, Limited cellularity due to acellular background material Unable to perform interpretation due to unsatisfactory specimen [facility] 05-23-2022 Miscellaneous Notes Pamela from [facility] is doing prior auth on patients ECHO. She states she needs office notes, testing on why patients needs this test done. Please advise what you would like sent. I will fax to [phone]. Pamela number is [phone]. documented in this encounter [facility] 05-20-2022 Note HNO ID: [id number] Author: Tamara Durant APRN.CNP Service: ? Author Type: Nurse Practitioner Type: Progress Notes Filed: 05/24/2022 10:30 PM Note Text: This note was created using [employer]ter. Stefania Nolan is a 61 year old female here today for an annual physical. I reviewed her past medical, surgical, social, and family histories today and updated chart. Allergies, chronic medications, and supplements were also reviewed and her list is now up to date. Concern(s) today include: G0 MENSTRUAL HISTORY LMP: Around 2010 Menarche 14 No hot flashes or night sweats Gets hot at night Patient on HRT: no Ever used HRT: no SEXUAL HISTORY: Currently not sexually active CONTRACEPTION: n/a Hx of abnormal pap: no VAGINAL SYMPTOMS: Denies abnormal discharge, itching, pain. Occasional burning BREAST: Denies lumps, nipple discharge, and pain. Last Mammogram URINARY SYMPTOMS: Denies dysuria, urgency, frequency, hematuria. Do you experience urinary incontinence? No FAMILY HISTORY: Breast Cancer: yes - on dad's side some of his sisters Uterine Cancer: no Cervical Cancer: no Ovarian Cancer: no Osteoporosis: no Her medications were reviewed today and her list is now up to date. 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 removed atypical cell IRIDOTOMY/IRRIDECTOMY LASER SURG PER SESSION Bilateral 2018 Dr. White LIGATE FALLOPIAN TUBE tubual ligation in 1996 ALLERGIES Patient has no known allergies. MEDICATIONS fluticasone (FLONASE) 50 mcg/actuation nasal sprayinstill 1 (ONE) spray IN EACH NOSTRIL TWICE DAILY for 1 (ONE) month. if no improvement, may discontinue DIRECTEDDisp: Rfl: lisinopril 2.5 mg tabletTAKE 1 TABLET BY MOUTH 1 TIME EACH DAY.Disp: 90 tabletRfl: 0 pravastatin (PRAVACHOL) 40 mg tabletTAKE 1 TABLET BY MOUTH 1 TIME EACH DAY.Disp: 90 tabletRfl: 0 levothyroxine (SYNTHROID) 125 mcg tabletTAKE 1 TABLET BY MOUTH 1 TIME EACH DAY.Disp: 90 tabletRfl: 0 COQ10, UBIQUINOL, ORALTake by mouth once daily.Disp: Rfl: Multivitamin capsuleTake 1 capsule by mouth once daily. Complete multivitamin womanDisp: Rfl: vitamin B complex/folic acid (B COMPLEX 100 ORAL)Take by mouth. complexDisp: Rfl: cholecalciferol (VITAMIN D3) 5,000 unit tabTake 5,000 Units by mouth once daily.Disp: Rfl: Fluocinolone Acetonide Oil 0.01 % dropAPPLY 1 3 DROPS BOTH EARS TWICE A DAY NEEDEDDisp: Rfl: FAMILY HISTORY Problem Relation Age of Onset Diabetes Mother Heart disease Mother other (Twisted colon) Mother other (CHF) Mother other (TIA) Mother other (Neck Surgery) Mother other (CHF) Father other (Lead poisoning) Father Arthritis Sister Heart Sister Diabetes Brother Arthritis Brother Breast Cancer Paternal Aunt Social History Tobacco Use Smoking status: Never Smokeless tobacco: Never Substance Use Topics Alcohol use: Never Drug use: Never Review of Systems Constitutional: Negative for appetite change, chills, fatigue, fever and unexpected weight change. HENT: Negative for congestion, ear pain, rhinorrhea and sore throat. Eyes: Negative for pain, discharge, itching and visual disturbance. Respiratory: Negative for cough, shortness of breath and wheezing. Cardiovascular: Negative for chest pain, palpitations and leg swelling. Gastrointestinal: Negative for abdominal pain, constipation, diarrhea, nausea and vomiting. Musculoskeletal: Negative for arthralgias. Skin: Negative for rash. Neurological: Negative for dizziness, tremors, weakness and headaches. Psychiatric/Behavioral: Negative for dysphoric mood and sleep disturbance. The patient is not nervous/anxious. Objective BP 110/68 Pulse 80 Temp 36.5 ?C (97.7 ?F) Ht 170.2 cm (5' 7 ) Wt 82.6 kg (182 lb) SpO2 98% BMI 28.51 kg/m? Physical Exam Constitutional: General: She is not in acute distress. Appearance: Normal appearance. She is well-developed. HENT: Head: Normocephalic and atraumatic. Right Ear: Hearing, tympanic membrane, ear canal and external ear normal. No drainage. Left Ear: Hearing, tympanic membrane, ear canal and external ear normal. No drainage. Nose: Nose normal. Mouth/Throat: Pharynx: Uvula midline. Eyes: General: Lids are normal. Right eye: No discharge. Left eye: No discharge. Extraocular Movements: Extraocular movements intact. Conjunctiva/sclera: Conjunctivae normal. Pupils: Pupils are equal, round, and reactive to light. Neck: Thyroid: No thyroid mass or thyromegaly. Vascular: No carotid bruit. Cardiovas (more content not included)... [facility] 05-20-2022 History of Present illness Narrative Images from the original note were not included. This note was created using [email or web address]. Subjective Eliana Nolan is a 61 year old female here today for an annual physical. I reviewed her past medical, surgical, social, and family histories today and updated chart. Allergies, chronic medications, and supplements were also reviewed and her list is now up to date. Concern(s) today include: G0 MENSTRUAL HISTORY LMP: Around 2010 Menarche 14 No hot flashes or night sweats Gets hot at night Patient on HRT: no Ever used HRT: no SEXUAL HISTORY: Currently not sexually active CONTRACEPTION: n/a Hx of abnormal pap: no VAGINAL SYMPTOMS: Denies abnormal discharge, itching, pain. Occasional burning BREAST: Denies lumps, nipple discharge, and pain. Last Mammogram URINARY SYMPTOMS: Denies dysuria, urgency, frequency, hematuria. Do you experience urinary incontinence? No FAMILY HISTORY: Breast Cancer: yes - on dad's side some of his sisters Uterine Cancer: no Cervical Cancer: no Ovarian Cancer: no Osteoporosis: no Her medications were reviewed today and her list is now up to date. 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 removed atypical cell IRIDOTOMY/IRRIDECTOMY LASER SURG PER SESSION Bilateral 2018 Dr. White LIGATE FALLOPIAN TUBE tubual ligation in 1996 ALLERGIES Patient has no known allergies. MEDICATIONS fluticasone (FLONASE) 50 mcg/actuation nasal spray^instill 1 (ONE) spray IN EACH NOSTRIL TWICE DAILY for 1 (ONE) month. if no improvement, may discontinue DIRECTED^Disp: ^Rfl: lisinopril 2.5 mg tablet^TAKE 1 TABLET BY MOUTH 1 TIME EACH DAY.^Disp: 90 tablet^Rfl: 0 pravastatin (PRAVACHOL) 40 mg tablet^TAKE 1 TABLET BY MOUTH 1 TIME EACH DAY.^Disp: 90 tablet^Rfl: 0 levothyroxine (SYNTHROID) 125 mcg tablet^TAKE 1 TABLET BY MOUTH 1 TIME EACH DAY.^Disp: 90 tablet^Rfl: 0 COQ10, UBIQUINOL, ORAL^Take by mouth once daily.^Disp: ^Rfl: Multivitamin capsule^Take 1 capsule by mouth once daily. Complete multivitamin woman^Disp: ^Rfl: vitamin B complex/folic acid (B COMPLEX 100 ORAL)^Take by mouth. complex^Disp: ^Rfl: cholecalciferol (VITAMIN D3) 5,000 unit tab^Take 5,000 Units by mouth once daily.^Disp: ^Rfl: Fluocinolone Acetonide Oil 0.01 % drop^APPLY 1 3 DROPS BOTH EARS TWICE A DAY NEEDED^Disp: ^Rfl: FAMILY HISTORY Problem Relation Age of Onset Diabetes Mother Heart disease Mother other (Twisted colon) Mother other (CHF) Mother other (TIA) Mother other (Neck Surgery) Mother other (CHF) Father other (Lead poisoning) Father Arthritis Sister Heart Sister Diabetes Brother Arthritis Brother Breast Cancer Paternal Aunt Social History Tobacco Use Smoking status: Never Smokeless tobacco: Never Substance Use Topics Alcohol use: Never Drug use: Never Review of Systems Constitutional: Negative for appetite change, chills, fatigue, fever and unexpected weight change. HENT: Negative for congestion, ear pain, rhinorrhea and sore throat. Eyes: Negative for pain, discharge, itching and visual disturbance. Respiratory: Negative for cough, shortness of breath and wheezing. Cardiovascular: Negative for chest pain, palpitations and leg swelling. Gastrointestinal: Negative for abdominal pain, constipation, diarrhea, nausea and vomiting. Musculoskeletal: Negative for arthralgias. Skin: Negative for rash. Neurological: Negative for dizziness, tremors, weakness and headaches. Psychiatric/Behavioral: Negative for dysphoric mood and sleep disturbance. The patient is not nervous/anxious. Objective BP 110/68 Pulse 80 Temp 36.5 C (97.7 F) Ht 170.2 cm (5' 7 ) Wt 82.6 kg (182 lb) SpO2 98% BMI 28.51 kg/m Physical Exam Constitutional: General: She is not in acute distress. Appearance: Normal appearance. She is well-developed. HENT: Head: Normocephalic and atraumatic. Right Ear: Hearing, tympanic membrane, ear canal and external ear normal. No drainage. Left Ear: Hearing, tympanic membrane, ear canal and external ear normal. No drainage. Nose: Nose normal. Mouth/Throat: Pharynx: Uvula midline. Eyes: General: Lids are normal. Right eye: No discharge. Left eye: No discharge. Extraocular Movements: Extraocular movements intact. Conjunctiva/sclera: Conjunctivae normal. Pupils: Pupils are equal, round, and reactive to light. Neck: Thyroid: No thyroid mass or thyromegaly. Vascular: No carotid bruit. Cardiovascular: Rate and Rhythm: Normal rate and regular rhythm. Pulses: Radial pulses are 2+ on the right side and 2+ on the left side. Dorsalis pedis pulses are 2+ on the right side and 2+ on the left side. Heart sounds: Normal heart sounds. No murmur heard. Pulmonary: Effort: Pulmonary effort is normal. Breath sounds: No wheezing, rhonchi or rales. Chest: Breasts: Breasts are symmetrical. Right: No inverted nipple, mass, nipple discharge, skin change or tenderness. Left: No inverted nipple, mass, nipple discharge, skin change or tenderness. Abdominal: General: Bowel sounds are normal. There is no distension or abdominal bruit. Palpations: Abdomen is soft. There is no mass. Tenderness: There is no abdominal tenderness. Genitourinary: Exam position: Prone. Pubic Area: Rash present. Labia: Right: Rash (macular erythematous) present. No lesion. Left: Rash (macular erythematous) present. No lesion. Urethra: No urethral swelling or urethral lesion. Vagina: Normal. No vaginal discharge, erythema or lesions. Cervix: Normal. Uterus: Normal. Adnexa: Right adnexa normal and left adnexa normal. Musculoskeletal: General: Normal range of motion. Cervical back: Normal range of motion and neck supple. Right lower leg: No edema. Left lower leg: No edema. Lymphadenopathy: Cervical: No cervical adenopathy. Upper Body: Right upper body: No supraclavicular adenopathy. Left upper body: No supraclavicular adenopathy. Lower Body: No right inguinal adenopathy. No left inguinal adenopathy. Skin: General: Skin is warm and dry. Findings: No bruising or rash. Neurological: General: No focal deficit present. Mental Status: She is alert and oriented to person, place, and time. Cranial Nerves: No cranial nerve deficit. Sensory: Sensation is intact. Motor: Motor function is intact. Coordination: Coordination is intact. Gait: Gait is intact. Psychiatric: Attention and Perception: Attention and perception normal. Mood and Affect: Mood and affect normal. Speech: Speech normal. Behavior: Behavior normal. Behavior is cooperative. Thought Content: Thought content normal. Judgment: Judgment normal. ASSESSMENT/PLAN: 1. Well adult exam - ICD9: V70.0, ICD10: Z00.00 (primary diagnosis) - Counseled on healthy diet and regular exercise - Follow up for annual exam in one year 2. Encounter for screening mammogram for breast cancer - ICD9: V76.12, ICD10: Z12.31 - Completed breast exam - Set up for mammogram, yearly mammogram recommended - Follow up for annual exam in one year. - DARIEN SCREENING 3. Screening for cervical cancer - ICD9: V76.2, ICD10: Z12.4 - Completed pap exam - Follow up for annual exam in one year. - PAP FLUID CERVICAL SCREENING - HPV W/GENOTYPE THIN PREP 4. Hypothyroidism, unspecified type - ICD9: 244.9, ICD10: E03.9 - Instructed patient on importance of taking on an empty stomach either first thing in the morning or at bedtime. - continue current dose of Synthroid 125 mcg daily, no pill on Sundays Due for TSH in 8 weeks - TSH BLD 5. Yeast dermatitis - ICD9: 112.3, ICD10: B37.2 - NYSTATIN 100,000 UNIT/GRAM TOPICAL CREAM 6. Hyperparathyroidism (HCC) - ICD9: 252.00, ICD10: E21.3 Likely secondary to CKD Recent labs are stable FU 6 months Tamara Durant APRN.MICROECONOMICS PROFESSOR documented in this encounter [facility] 05-17-2022 Miscellaneous Notes Pharmacy requesting refills: Last office visit 04/08/2022 Last refill ???.nov 05/20/2022 Requested Prescriptions Pending Prescriptions Disp Refills lisinopril 2.5 mg tablet 90 tablet 0 Sig: TAKE 1 TABLET BY MOUTH 1 TIME EACH DAY. pravastatin (PRAVACHOL) 40 mg tablet 90 tablet 0 Sig: TAKE 1 TABLET BY MOUTH 1 TIME EACH DAY. levothyroxine (SYNTHROID) 125 mcg tablet 90 tablet 0 Sig: TAKE 1 TABLET BY MOUTH 1 TIME EACH DAY. Please review and advise. Lisa Juan MA documented in this encounter [facility] 05-16-2022 Miscellaneous Notes Patient informed of results and medication directions. Reminder placed for recheck. Sana Pelaez MA Called left message for patient to contact office and let us know if we can leave results on her vm. Lisa Juan MA Please notify patient her TSH was low at 0.08. I would like to decrease her levothyroxine. I would like her to continue the 125 mcg dose but NO DOSE on Sundays. Recheck in 8 weeks, please add reminder WBC is slightly low but stable. Other labs WNL Tamara Durant APRN.DELMY documented in this encounter [facility] 04-08-2022 History of Present illness Narrative This note was created using [email or web address]. Subjective Eliana Nolan is a 61 year old female here today for establish care, thyroid, cholesterol. I reviewed past medical, surgical, social, and family histories today and updated chart. Allergies, chronic medications, and supplements were also reviewed. Thought she needed refills but does not She has no concerns today She just retired from [employer] and needs new PCP She stopped going to her sampler first Dr. Shaw - Gets urinalysis, vitamin D level and kidney function every 6 months. She was following a plant based, no oil, no sugar diet and this helped a lot The last 6 months she was not following her diet She also wants to start exercising again - does a walk at home video 30-50 minutes Diagnosed with hypothyroidism many years ago Levothyroxine dose was increased in September, rechecked in October and it was in normal range She takes pravastatin for elevated cholesterol Dose increased about a year ago She saw a transit survey worker for autoimmune evaluation, GREGORY was elevated. Had lab work-up done. It was all normal besides the thyroid antibodies Stuffy head, tired, no energy, light headed ever since she got her COVID vaccinations Not too bothersome Had bivalent booster in February - her heart rate went up afterwards, was over 100 for almost 24 hours. Was tired, mild headache, stuffy head feeling The previous 6 months she felt her heart rate was elevated, could feel the heart pounding Has a fit bit, heart rate almost always goes above 100 after her shower, sometimes goes off while she is at rest Has been years since her last EKG, had stress echo around 1999 Preventative Health: Breast cancer screening - She is due for a mammogram Cervical cancer screening - Last Pap smear was a long time. Never had an abnormal. 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 removed atypical cell LIGATE FALLOPIAN TUBE tubual ligation in 1996 ALLERGIES Patient has no known allergies. MEDICATIONS pravastatin (PRAVACHOL) 40 mg tablet TAKE 1 TABLET BY MOUTH 1 TIME EACH DAY. levothyroxine (SYNTHROID) 125 mcg tablet TAKE 1 TABLET BY MOUTH 1 TIME EACH DAY. lisinopril 2.5 mg tablet TAKE 1 TABLET BY MOUTH 1 TIME EACH DAY. COQ10, UBIQUINOL, ORAL Take by mouth once daily. Multivitamin capsule Take 1 capsule by mouth once daily. Complete multivitamin woman vitamin B complex/folic acid (B COMPLEX 100 ORAL) Take by mouth. complex cholecalciferol (VITAMIN D-3) 5,000 unit tab Take 5,000 Units by mouth once daily. FAMILY HISTORY Problem Relation Age of Onset Diabetes Mother Heart disease Mother Diabetes Brother Social History Tobacco Use Smoking status: Never Smokeless tobacco: Never Substance Use Topics Alcohol use: Never Drug use: Never Review of Systems Constitutional: Positive for fatigue (intermittent). Negative for appetite change, chills, fever and unexpected weight change. HENT: Positive for congestion (intermittent) and tinnitus. Negative for ear pain, rhinorrhea and sore throat. Sees ENT for dry flaky skin in the ear - vacuums ears out and uses ear drops Eyes: Negative for pain, discharge, itching and visual disturbance. Hx narrow angle glaucoma Wears glasses Irodotomy bilateral - about 5 years ago, Dr. White Respiratory: Negative for cough, shortness of breath and wheezing. Cardiovascular: Positive for palpitations. Negative for chest pain and leg swelling. Hx MVP years ago - murmur went away Gastrointestinal: Negative for abdominal pain, constipation, diarrhea, nausea and vomiting. Genitourinary: Negative for difficulty urinating. Musculoskeletal: Positive for arthralgias. Will get some swelling to top of foot Hx tendonitis of top of foot Skin: Negative for rash. Neurological: Negative for dizziness, tremors, weakness and headaches. Psychiatric/Behavioral: Negative for dysphoric mood and sleep disturbance. The patient is not nervous/anxious. Objective BP 116/64 Pulse 85 Temp 36.7 C (98 F) Ht 170.2 cm (5' 7 ) Wt 84.8 kg (187 lb) SpO2 100% BMI 29.29 kg/m Physical Exam Constitutional: Appearance: Normal appearance. She is well-developed. HENT: Head: Normocephalic and atraumatic. Right Ear: Hearing, tympanic membrane, ear canal and external ear normal. No drainage. Left Ear: Hearing, tympanic membrane, ear canal and external ear normal. No drainage. Nose: Nose normal. Mouth/Throat: Pharynx: Uvula midline. Eyes: General: Lids are normal. Right eye: No discharge. Left eye: No discharge. Conjunctiva/sclera: Conjunctivae normal. Pupils: Pupils are equal, round, and reactive to light. Neck: Thyroid: No thyromegaly. Vascular: No carotid bruit. Trachea: No tracheal deviation. Cardiovascular: Rate and Rhythm: Normal rate and regular rhythm. Heart sounds: Normal heart sounds. No murmur heard. Pulmonary: Effort: Pulmonary effort is normal. Breath sounds: Normal breath sounds. No wheezing, rhonchi or rales. Abdominal: General: Bowel sounds are normal. There is no distension or abdominal bruit. Palpations: Abdomen is soft. There is no mass. Tenderness: There is no abdominal tenderness. Musculoskeletal: Cervical back: Normal range of motion and neck supple. Right lower leg: No edema. Left lower leg: No edema. Lymphadenopathy: Cervical: No cervical adenopathy. Upper Body: Right upper body: No supraclavicular adenopathy. Left upper body: No supraclavicular adenopathy. Skin: General: Skin is warm and dry. Findings: No bruising or rash. Neurological: General: No focal deficit present. Mental Status: She is alert and oriented to person, place, and time. Cranial Nerves: No cranial nerve deficit. Sensory: Sensation is intact. Motor: Motor function is intact. Coordination: Coordination is intact. Gait: Gait is intact. Psychiatric: Mood and Affect: Mood normal. Behavior: Behavior normal. Behavior is cooperative. Thought Content: Thought content normal. Judgment: Judgment normal. ASSESSMENT/PLAN: 1. 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 Levothyroxine 125 mcg daily - check TSH in 6 months - Follow up in 6 months 2. Hyperlipidemia, mixed - ICD9: 272.2, ICD10: E78.2 - to be determined upon return of lab results - Continue current dose of pravastatin (Pravachol) 40 mg. - Encouraged following a low fat, low cholesterol diet. - CBC - COMP METABOLIC PANEL - LIPID PANEL BASIC - TSH BLD 3. Mitral valve prolapse - ICD9: 424.0, ICD10: I34.1 Routine surveillance with ECHO and EKG Has been having heart racing - ECG COMPLETE - ECHO 4. Racing heart beat - ICD9: 785.0, ICD10: R00.0 - ECG COMPLETE - ECHO 5. Chronic kidney disease, stage 2, mildly decreased GFR - ICD9: 585.2, ICD10: N18.2 - eGFR: Stable - Statin therapy: Yes - ACEi/ARB prescribed: Yes - Following with nephrology: No - Recommend maintaining blood pressure under 130/80 - CBC - COMP METABOLIC PANEL - VITAMIN D 25 HYDROXY - URINALYSIS WITH MICROSCOPIC, REFLEX CULTURE 6. Screening for HIV (human immunodeficiency virus) - ICD9: V73.89, ICD10: Z11.4 - HIV 1 2 COMBO(AG/AB),WITH REFLEX TO DIFFERENTIATION 7. Special screening examination for viral disease - ICD9: V73.99, ICD10: Z11.59 - HEP C AB IA W/CONF SCRN FU in about 6 weeks for well adult exam Tamara Durant APRN.MICROECONOMICS PROFESSOR documented in this encounter [facility] documented as of this encounter (statuses as of 11/22/2022) [facility] History of Past illness Narrative* Problem Noted Date Diagnosed Date Resolved Date Hypertension 11/30/2015 11/21/2022 documented as of this encounter (statuses as of 11/22/2022) [facility] History of Past illness Narrative* Problem Noted Date Diagnosed Date Resolved Date Hypertension 11/30/2015 11/21/2022 documented as of this encounter (statuses as of 01/17/2023) [facility] History of Past illness Narrative* Problem Noted Date Diagnosed Date Resolved Date Hypertension 11/30/2015 11/21/2022 documented as of this encounter (statuses as of 01/17/2023) [facility] note* Diagnosis 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- Primary Hyperlipidemia, mixed Mixed hyperlipidemia Mitral valve prolapse Mitral valve disorders Racing heart beat Tachycardia, unspecified Chronic kidney disease, stage 2, mildly decreased GFR Chronic kidney disease, Stage II (mild) Screening for HIV (human immunodeficiency virus) Special screening examination for other specified viral diseases Special screening examination for viral disease Special screening examination for unspecified viral disease [facility] Diagnosis Well adult exam- Primary Routine general medical examination at a health care facility Encounter for screening mammogram for breast cancer Screening for cervical cancer Screening for malignant neoplasm of the cervix Hypothyroidism, unspecified type Yeast dermatitis Candidiasis of skin and nails Hyperparathyroidism (HCC) Hyperparathyroidism, unspecified [facility] Diagnosis Unsatisfactory cervical Papanicolaou smear- Primary Unsatisfactory cervical cytology smear [facility] Diagnosis Encounter for screening mammogram for breast cancer documented [facility] Diagnosis Hypothyroidism, unspecified type- Primary [facility] Diagnosis 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- Primary Hyperlipidemia, unspecified hyperlipidemia type Stage 3 chronic kidney disease, unspecified whether stage 3a or 3b CKD (HCC) Colon cancer screening Special screening for malignant neoplasms, colon [facility]* Diagnosis Screening for colorectal cancer- Primary Special screening for malignant neoplasms, colon documented in this encounter [facility] for referral (narrative)* Outpatient Procedure (Routine) - Pending Review Specialty Diagnoses / Procedures Referred By Robinson daly Referred To Contact [facility] [place] Diagnoses Mitral valve prolapse Racing heart beat Procedures ECHO ECHO TTHRC R-T 2D W/WOM-MODE COMPL SPEC&COLR D Tamara Durant APRN.CNP [address] [place] [address] [facility] [place] [address] [address] Referral ID Status Reason Start Date Expiration Date Visits Requested Visits Authorized [id number] Pending Review Auto-Generat ed Referral 2 04/08/2023 1 1 * Outpatient Procedure (Routine) - Pending Review Specialty Diagnoses / Procedures Referred By Robinson daly Referred To Contact [facility] [place] Diagnoses Mitral valve prolapse Racing heart beat Procedures ECG COMPLETE ECG ROUTINE ECG W/LEAST 12 LDS W/I&R Tamara Durant APRN.MICROECONOMICS PROFESSOR [address] [place] [address] [facility] [place] [address] [place] [address] Referral ID Status Reason Start Date Expiration Date Visits Requested Visits Authorized [id number] Pending Review Auto-Generat ed Referral 2 04/08/2023 1 1 [facility] for referral (narrative)* Diagnostic Procedure Only (Routine) - Pending Review Specialty Diagnoses / Procedures Referred By Robinson t Referred To Contact [facility] Diagnoses Encounter for screening mammogram for breast cancer Encounter for screening mammogram for malignant neoplasm of breast Procedures DARIEN SCREENING SCREENING MAMMOGRAPHY BI 2-VIEW BREAST INC CAD Tamara Durant APRN.MICROECONOMICS PROFESSOR [address] [place] [address] [facility] [address] [place] [address] Referral ID Status Reason Start Date Expiration Date Visits Requested Visits Authorized [id number] Pending Review Auto-Generat ed Referral 05/20/2022 06/19/2023 1 1 [facility] for referral (narrative)* Outpatient Procedure (Routine) - Authorized Specialty Diagnoses / Procedures Referred By Contac t Referred To Contact [facility] [place] Diagnoses Screening for colorectal cancer Procedures COLONOSCOPY SCREENING COLONOSCOPY SCREENING COLONOSCOPY FLX DX W/COLLJ SPEC WHEN PFRMD Lia Mosqueda PA-C [address] [address] Referral ID Status Reason Start Date Expiration Date Visits Requested Visits Authorized [id number] Authorized Auto-Generat ed Referral 04/09/2023 1 1 [facility] for visit Narrative* Diagnostic Procedure Only (Routine) - Closed Specialty Diagnoses / Procedures Referred By Contac t Referred To Contact [facility] Diagnoses Z12.31 (ICD-10-CM) - Encounter for screening mammogram for breast cancer Z12.31 (ICD-10-CM) - Encounter for screening mammogram for malignant neoplasm of Procedures Z12.31 (ICD-10-CM) - Encounter for screening mammogram for breast cancer Z12.31 (ICD-10-CM) - Encounter for screening mammogram for malignant neoplasm of Tamara Durant APRN.CNP [address] [place] [address] [facility] [address] [place] [address] Referral ID Status Reason Start Date Expiration Date V isits Requested Visits Authorized [id number] Closed OON/Self Pay Override Patient Cleared INN/SMCP Payor Auth Obtained 05/25/2022 11/21/2022 1 1 [facility] Advance Directives No Advanced Directives Records FoundDocuments on File Type Date Recorded Patient Field Administrative Assistant Expl anation Advance Directives and Living Will Power of Sugarcane Research Technician Summary Purpose Family History No Family History Records FoundNo Family History Records FoundNo Family History Records Found Reason for Referral Specialty Diagnoses / Procedures Referred By Contac t Referred To Contact Gastroenterology Diagnoses Colon cancer screening Procedures CONSULT TO GASTROENTEROLOGY OFFICE/OUTPATIENT NEW HIGH MDM 60-74 MINUTES Tamara Durant, LABEL DESIGNER.MICROECONOMICS PROFESSOR [address] [place] [address] Sayda Arboleda MD [address] [facility] [address] [place] [address] Referral ID Status Reason Start Date Expiration Date Visits Requested Visits Authorized [id number] Pending Review PCP Requested Referral 11/18/2022 11/18/2023 1 1 Additional Source Comments INFORMATION SOURCE (unrecogn ized section and content) DATE CREATED AUTHOR AUTHOR'S ORGANIZ ATION 11/23/2022 [facility] DATE CREATED AUTHOR AUTHOR'S ORGANIZ ATION 05/10/2023 [facility] Source Comments (unrecognize d section and content) In the event this informatio n is protected by the Federal Confidentiality of Alcohol and Drug Abuse Patient Records regulations: The Federal rules restrict any use of the information to criminally investigate or prosecute any alcohol or drug abuse patient.[facility] Inc[facility] the event this information is protected by the Federal Confidentiality of Alcohol and Drug Abuse Patient Records regulations: The Federal rules restrict any use of the information to criminally investigate or prosecute any alcohol or drug abuse patient.[facility] Inc[facility] the event this information is protected by the Federal Confidentiality of Alcohol and Drug Abuse Patient Records regulations: The Federal rules restrict any use of the information to criminally investigate or prosecute any alcohol or drug abuse patient.[facility] Inc[facility] the event this information is protected by the Federal Confidentiality of Alcohol and Drug Abuse Patient Records regulations: The Federal rules restrict any use of the information to criminally investigate or prosecute any alcohol or drug abuse patient.[facility] Inc[facility] the event this information is protected by the Federal Confidentiality of Alcohol and Drug Abuse Patient Records regulations: The Federal rules restrict any use of the information to criminally investigate or prosecute any alcohol or drug abuse patient.[facility] Inc[facility] the event this information is protected by the Federal Confidentiality of Alcohol and Drug Abuse Patient Records regulations: The Federal rules restrict any use of the information to criminally investigate or prosecute any alcohol or drug abuse patient.[facility] Inc[facility] the event this information is protected by the Federal Confidentiality of Alcohol and Drug Abuse Patient Records regulations: The Federal rules restrict any use of the information to criminally investigate or prosecute any alcohol or drug abuse patient.[facility] Inc[facility] the event this information is protected by the Federal Confidentiality of Alcohol and Drug Abuse Patient Records regulations: The Federal rules restrict any use of the information to criminally investigate or prosecute any alcohol or drug abuse patient.[facility] Inc[facility] the event this information is protected by the Federal Confidentiality of Alcohol and Drug Abuse Patient Records regulations: The Federal rules restrict any use of the information to criminally investigate or prosecute any alcohol or drug abuse patient.[facility] Inc[facility] the event this information is protected by the Federal Confidentiality of Alcohol and Drug Abuse Patient Records regulations: The Federal rules restrict any use of the information to criminally investigate or prosecute any alcohol or drug abuse patient.[facility] IncIn the event this information is protected by the Federal Confidentiality of Alcohol and Drug Abuse Patient Records regulations: The Federal rules restrict any use of the information to criminally investigate or prosecute any alcohol or drug abuse patient.[facility] IncIn the event this information is protected by the Federal Confidentiality of Alcohol and Drug Abuse Patient Records regulations: The Federal rules restrict any use of the information to criminally investigate or prosecute any alcohol or drug abuse patient.[facility] IncIn the event this information is protected by the Federal Confidentiality of Alcohol and Drug Abuse Patient Records regulations: The Federal rules restrict any use of the information to criminally investigate or prosecute any alcohol or drug abuse patient.[facility] IncIn the event this information is protected by the Federal Confidentiality of Alcohol and Drug Abuse Patient Records regulations: The Federal rules restrict any use of the information to criminally investigate or prosecute any alcohol or drug abuse patient.[facility] IncIn the event this information is protected by the Federal Confidentiality of Alcohol and Drug Abuse Patient Records regulations: The Federal rules restrict any use of the information to criminally investigate or prosecute any alcohol or drug abuse patient.[facility] IncIn the event this information is protected by the Federal Confidentiality of Alcohol and Drug Abuse Patient Records regulations: The Federal rules restrict any use of the information to criminally investigate or prosecute any alcohol or drug abuse patient.[facility] IncIn the event this information is protected by the Federal Confidentiality of Alcohol and Drug Abuse Patient Records regulations: The Federal rules restrict any use of the information to criminally investigate or prosecute any alcohol or drug abuse patient.[facility] IncIn the event this information is protected by the Federal Confidentiality of Alcohol and Drug Abuse Patient Records regulations: The Federal rules restrict any use of the information to criminally investigate or prosecute any alcohol or drug abuse patient.[facility] Reason for Visit (unrecogniz ed section and content) Reason Comments Results Reason Onset Date Comments Refill Request 05/17/2022 Reason Comments Request Outside Medical Records Reason Comments Well Woman Pap Reason Comments 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 repeat Specialty Diagnoses / Procedures Referred By Contac t Referred To Contact [facility] Diagnoses Wellness examination Procedures OFFICE/OUTPATIENT ESTABLISHED MOD [facility] 30-39 MIN Tamara Durant, LABEL DESIGNER.MICROECONOMICS PROFESSOR [address] [place] [address] Tamara Durant, LABEL DESIGNER.MICROECONOMICS PROFESSOR [address] [place] [address] Referral ID Status Reason Start Date Expiration Date V isits Requested Visits Authorized [id number] Closed OON/Self Pay Override Patient Cleared INN/SMCP Payor Auth Obtained 05/26/2022 08/07/2022 1 1 Reason Comments Results ECHO Reason Comments Lab Orders Reason Comments Hypothyroidism Specialty Diagnoses / Procedures Referred By Contac t Referred To Contact [facility] Diagnoses Hypothyroid Procedures OFFICE/OUTPATIENT ESTABLISHED MOD [facility] 30-39 MIN Tamara Durant, LABEL DESIGNER.MICROECONOMICS PROFESSOR [address] [place] [address] [facility] [place] [address] Referral ID Status Reason Start Date Expiration Date Visits Requested Visits Authorized [id number] Pending Review OON/Self Pay Override Patient Cleared INN/SMCP Payor Auth Obtained 06/10/2022 12/12/2022 1 1 Reason Comments Procedure Reason Comments New Patient Colon screening Specialty Diagnoses / Procedures Referred By Robinson t Referred To Contact GASTROENTEROLOGY Diagnoses Colon cancer screening Procedures OFFICE VISIT, NEW PT., LEVEL 1 TC Sayda Arboleda MD 1 [facility] [address] [place] [address] [facility] [address] [facility] [address] [facility], [address], [address] [place] [address] Referral ID Status Reason Start Date Expiration Date Visits Requested Visits Authorized [id number] Pending Review OON/Self Pay Override 11/25/2022 05/24/2023 1 1 Care Teams (unrecognized sec tion and content) Dowel Machine Operator Relationship Specialty Start Date End Date Tamara Durant, LABEL DESIGNER.MICROECONOMICS PROFESSOR [address] [place] [address] PCP - General Family Medicine 04/08/22 Dowel Machine Operator Relationship Specialty Start Date End Date Tamara Durant, LABEL DESIGNER.MICROECONOMICS PROFESSOR [address] [place] [address] PCP - General Family Medicine 04/08/22 Dowel Machine Operator Relationship Specialty Start Date End Date Tamara Durant, LABEL DESIGNER.MICROECONOMICS PROFESSOR [address] [place] [address] PCP - General Family Medicine 04/08/22 Dowel Machine Operator Relationship Specialty Start Date End Date Tamara Durant, LABEL DESIGNER.MICROECONOMICS PROFESSOR [address] [place] [address] PCP - General Family Medicine 04/08/22 Dowel Machine Operator Relationship Specialty Start Date End Date Tamara Durant, LABEL DESIGNER.MICROECONOMICS PROFESSOR [address] [place] [address] PCP - General Family Medicine 04/08/22 Dowel Machine Operator Relationship Specialty Start Date End Date Tamara Durant, LABEL DESIGNER.MICROECONOMICS PROFESSOR [address] [place] [address] PCP - General Family Medicine 04/08/22 Dowel Machine Operator Relationship Specialty Start Date End Date Tamara Durant APRN.MICROECONOMICS PROFESSOR [address] [place] [address] PCP - General Family Medicine 04/08/22 Dowel Machine Operator Relationship Specialty Start Date End Date Tamara Durant LABEL DESIGNER.MICROECONOMICS PROFESSOR [address] [place] [address] PCP - General Family Medicine 04/08/22 Dowel Machine Operator Relationship Specialty Start Date End Date Tamara Durant APRN.MICROECONOMICS PROFESSOR [address] [place] [address] PCP - General Family Medicine 04/08/22 Dowel Machine Operator Relationship Specialty Start Date End Date Tamara Durant LABEL DESIGNER.MICROECONOMICS PROFESSOR [address] [place] [address] PCP - General Family Medicine 04/08/22 Dowel Machine Operator Relationship Specialty Start Date End Date Tamara Durant, LABEL DESIGNER.MICROECONOMICS PROFESSOR [address] [place] [address] PCP - General Family Medicine 04/08/22 Dowel Machine Operator Relationship Specialty Start Date End Date Tamara Durant, LABEL DESIGNER.MICROECONOMICS PROFESSOR [address] [place] [address] PCP - General Family Medicine 04/08/22 Dowel Machine Operator Relationship Specialty Start Date End Date Tamara Durant, LABEL DESIGNER.MICROECONOMICS PROFESSOR [address] [place] [address] PCP - General Family Medicine 04/08/22 FOR RECORDS PERTAINING TO PATIENTS WHO ARE OR HAVE BEEN ENROLLED IN A CHEMICAL DEPENDENCY/SUBSTANCEABUSE PROGRAM, SOME INFORMATION MAY BE OMITTED. This clinical summary was aggregated from multiple sources. Caution should be exercised in using it in the provision of clinical care. This summary normalizes information from multiple sources, and as a consequence, information in this document may materially change the coding, format and clinical context of patient data. In addition, data may be omitted in some cases. CLINICAL DECISIONS SHOULD BE BASED ON THE PRIMARY CLINICAL RECORDS. [facility] [employer] [facility]. provides no warranty or guarantee of the accuracy or completeness of information in this document.
== END | disposition home or self-care (01) ==
LOC: PAVLAB 09:39
PROVIDERS: PCP Nurse Practitioner Family; Referring Provider Nurse Practitioner Family; Visit Provider Nurse Practitioner Family
DX: E21.3 Hyperparathyroidism, unspecified (principal); N18.30 Chronic kidney disease, stage 3 unspecified; E03.9 Hypothyroidism, unspecified; I12.9 Hypertensive chronic kidney disease with stage 1 through stage 4 chronic kidney disease, or unspecified chronic kidney disease
CPT/HCPCS: 36415; 80053; 80061; 82306; 84443; 85027

== ENCOUNTER → 2023-11-15 | Outpatient (CLI) | payer OTHER, SELFPAY ==
[2023-11-15 10:43] LABS: Absolute Lymphocyte Count 1.92 X10^3/uL (0.83-4.51); Absolute Neutrophil Count 1.5 X10^3/uL (2.0-7.7); Basophil# 0.02 X10^3/uL; Basophil% 0.5 % (0-1); Eosinophil# 0.16 X10^3/uL; Hematocrit 42.2 % (37-47); Hemoglobin 13.6 g/dL (12.0-15.0); Lymphocyte # 1.92 X10^3/ul (0.83-4.51); Mean Corp Hgb Conc 32.2 g/dL (32-36); Mean Corpuscular Hgb 31.4 pg (27.0-32.0); Mean Corpuscular Volume 97.5 fL (81-99); Monocyte# 0.38 X10^3/uL; Monocyte% 9.5 % (0-10); NRBC Flagged by Analyzer 0 % (0-5); Neutrophil # 1.51 X10^3/uL (2.7-7.7); Neutrophil % 37.7 % (47-70); Platelet Count 217 K/mm3 (150-450); RBC Distribution Width CV 13.6 % (11.6-14.6); RBC Distribution Width SD 49.4 fl (35.1-43.9); Red Blood Count 4.33 M/mm3 (4.2-5.4)
[2023-11-15 10:45] LABS: PTHIN 74.1 pg/mL (18.4-80.1)
[2023-11-15 10:49] LABS: Vitamin D,25 Hydroxy 79.5 ng/mL
[2023-11-15 10:55] LABS: ALB/GLOB Ratio 1.1 RATIO (0.9-2.4); AST(SGOT) 22 U/L (15-37); Alanine Aminotransfer ALT/SGPT 28 U/L (13-56); Alkaline Phosphatase 83 U/L (45-117); Anion Gap 4 (5-15); BUN 8 mg/dL (7-18); BUN/Creat Ratio 8.5 RATIO (10-20); Calcium,Total 9.2 mg/dL (8.5-10.1); Chloride 106 mmol/L (98-107); Creatinine, Serum 0.94 mg/dL (0.55-1.02); EST Glomerular Filtration Rate 63 mL/min (>60); Est Glom Filt Rate - Afr Amer 77 mL/min (>60); Globulin 3.5 g/dL (2.2-4.2); Glucose 91 mg/dL (74-106); Potassium 4.1 mmol/L (3.5-5.1); Protein, Total 7.5 g/dL (6.4-8.2); Sodium Level 140 mmol/L (136-145); Thyroid Stim Hormone (TSH) 4.28 uIU/mL (0.358-3.74)
== END | disposition home or self-care (01) ==
LOC: PAVLAB 10:17
PROVIDERS: PCP Nurse Practitioner Family; Referring Provider Nurse Practitioner Family; Visit Provider Nurse Practitioner Family
DX: I12.9 Hypertensive chronic kidney disease with stage 1 through stage 4 chronic kidney disease, or unspecified chronic kidney disease (principal); N18.30 Chronic kidney disease, stage 3 unspecified; E03.9 Hypothyroidism, unspecified
CPT/HCPCS: 36415; 80053; 82306; 83970; 84443; 85025

== ENCOUNTER → 2024-03-19 | Outpatient (CLI) | payer OTHER, SELFPAY | END | disposition home or self-care (01) | LOC: PAVLAB 11:33 | PROVIDERS: PCP Nurse Practitioner Family; Referring Provider Nurse Practitioner Family; Visit Provider Nurse Practitioner Family | DX: E03.9 Hypothyroidism, unspecified (principal) | CPT/HCPCS: 36415; 84443 ==